=== PATIENT | male | born 1955 | race African-American/Black ===

== ENCOUNTER 2017-02-11 14:54 | Observation (INO) | payer OTHER, SELFPAY ==
--- NOTE | 2017-02-11 15:43 | RAD ---
SINGLE VIEW OF THE CHEST: COMPARISON: 01/04/17. HISTORY: Chest pain. FINDINGS: A single view of the chest shows a normal-sized cardiomediastinal silhouette. There are multiple re mote right rib fractures. No pneumothorax is seen. There is no evidence of consolidation, mass, or pleural effusion. IMPRESSION: 1. No evidence of acute cardiopulmonary disease. 2. Multiple remote right posterior rib fractures. POS: [facility]
[2017-02-11 15:46] LABS: #Eosinphils 0.2 thou/uL (0.0-0.7); #Lymphocytes 2.7 thou/uL (1.20-3.40); #Monocytes 0.5 thou/uL (0.11-0.59); %Basophils 0.9 % (0.0-1.0); %Eosinophils 3.5 % (0.0-10.0); %Monocytes 9.7 % (0.0-10.0); Mean Platelet Volume 9.6 fL (7.4-10.4); Red Blood Cell (RBC) Count 4.67 mill/uL (4.70-6.10); White Blood Cell (WBC) Count 5.4 thou/uL (4.8-10.8)
[2017-02-11 16:08] LABS: ALT (SGPT) 15 U/L (8-55); AST (SGOT) 25 U/L (5-34); Alkaline Phosphatase 108 U/L (40-150); Anion Gap 12 mmol/L (10-20); BUN (Urea Nitrogen) 9 mg/dL (8.4-25.7); Bilirubin, Total 0.2 mg/dL (0.2-1.2); CK (CPK) 57 U/L (30-200); Calc. Creatinine Clearance 0 mL/min (70-130); Calcium 9.8 mg/dL (7.8-10.44); Carbon Dioxide 28 mmol/L (23-31); Chloride 103 mmol/L (98-107); Estimated GFR-MDRD 89; Globulin 4.7 g/dL (2.4-3.5); Lipase 5 U/L (8-78); Protein, Total 8.7 g/dL (5.8-8.1)
[2017-02-11 16:11] LABS: Troponin I Less than 0.010 ng/mL (< 0.028)
[2017-02-11] MEDS ORDERED: Acetaminophen 500 MG TAB ONE (17:36)
[2017-02-11] MEDS ORDERED: cloNIDine HCl 0.1 MG TAB ONE (18:06)
[2017-02-11] MEDS ORDERED: Acetaminophen 650 MG Suppository PR PRN (18:28)
[2017-02-11] MEDS ORDERED: Nitroglycerin 0.4 MG TAB (25 Tab Bottle) PO PRN (18:28)
[2017-02-11] MEDS ORDERED: Dextrose 5% in Water 1,000 ML IV PRN (18:48)
[2017-02-11] MEDS ORDERED: Dextrose 50% Abboject 50 ML SYRINGE SLOW IVP PRN (18:48)
[2017-02-11] MEDS ORDERED: HumaLOG 300 UNITS/3 ML VIAL SC PRN (18:48)
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
[2017-02-11 19:40] LABS: Troponin I 0.011 ng/mL (< 0.028)
[2017-02-11] MEDS ORDERED: Nicotine 14 MG PATCH TD SCH (20:00)
[2017-02-11 21:45] VITALS: BMI 21.3
[2017-02-11] MEDS: Ondansetron HCl/PF 4 MG/2 ML Vial SLOW IVP PRN (21:57)
[2017-02-11 22:46] LABS: Troponin I Less than 0.010 ng/mL (< 0.028)
[2017-02-11 22:49] LABS: Amphetamine Not Detected (NotDetected); Methadone Not Detected (NotDetected); Methamphetamine Not Detected (NotDetected)
[2017-02-11] MEDS: Acetaminophen 325 MG TAB PO PRN (23:22)
[2017-02-12] MEDS ORDERED: Magnesium Citrate 300 ML BOT PO SCH (00:15)
[2017-02-12] MEDS: Acetaminophen 325 MG TAB PO PRN (04:14)
[2017-02-12] MEDS: Ondansetron HCl/PF 4 MG/2 ML Vial SLOW IVP PRN (04:14)
[2017-02-12 04:55] LABS: #Basophils 0.1 thou/uL (0.0-0.2); #Eosinphils 0.1 thou/uL (0.0-0.7); #Monocytes 0.4 thou/uL (0.11-0.59); #Neutrophils 5.8 thou/uL (1.40-6.50); %Basophils 0.8 % (0.0-1.0); %Eosinophils 0.8 % (0.0-10.0); %Lymphocytes 23.8 % (21.0-51.0); %Monocytes 5.2 % (0.0-10.0); Mean Platelet Volume 10.1 fL (7.4-10.4); Red Blood Cell (RBC) Count 5.17 mill/uL (4.70-6.10); White Blood Cell (WBC) Count 8.4 thou/uL (4.8-10.8)
[2017-02-12 05:19] LABS: Anion Gap 14 mmol/L (10-20); BUN (Urea Nitrogen) 10 mg/dL (8.4-25.7); Calc. Creatinine Clearance 70 mL/min (70-130); Calcium 10.1 mg/dL (7.8-10.44); Carbon Dioxide 26 mmol/L (23-31); Chloride 101 mmol/L (98-107); Estimated GFR-MDRD Greater than 90
[2017-02-12] MEDS ORDERED: Aspirin 325 MG TAB PO SCH (08:00)
[2017-02-12] MEDS ORDERED: Carvedilol 25 MG TAB PO SCH (08:00)
[2017-02-12] MEDS ORDERED: Gabapentin 300 MG CAP PO SCH (09:00)
[2017-02-12] MEDS ORDERED: cloNIDine HCl 0.1 MG TAB PO SCH (09:00)
[2017-02-12] MEDS: FLU VACC QS2017-18 36 mo. & older 0.5 ML SYRINGE IM ONE ×2 (12:19→12:21)
--- NOTE | 2017-02-12 14:31 | NM ---
MYOCARDIAL PERFUSION STUDY: Date: 02/12/17 HISTORY: Chest pain. RADIOPHARMACEUTICALS: 28 mCi technetium-99m sestamibi, IV at stress. 10.2 mCi technetium-99m sestamibi, IV at rest. MEDICATIONS: 0.4 mg of Lexiscan, IV. FINDINGS: There is normal uptake and radiotracer seen throughout the left ventricular myocardium on the stress acquisition. There is no reversible defect seen between the stress and resting acquisitions. Gated images show normal ventricular wall motion and wall thickening. The calculated left ventricular ejec tion fraction is 62%. The calculated left ventricular ejection fraction on prior study on 08/15/15 w as 66%. There was elevation of the transient ischemic dilatation ratio on the prior study of 1.36, a nd is within normal limits on today's examination and is 0.97. IMPRESSION: 1. Normal myocardial perfusion study without evidence of a reversible defect seen to suggest ischem ia. 2. Normal left ventricular ejection fraction of 62%. POS: [facility]
[2017-02-12 16:01] VITALS: TEMP 97.5
[2017-02-12] MEDS ORDERED: ISOVUE-370 76%-LOCM 1 ML ONE (16:02)
[2017-02-12] MEDS ORDERED: Regadenoson 0.4 MG/5 ML SYRINGE ONE (16:38)
--- NOTE | 2017-02-12 16:39 | CT ---
CTA OF THE CHEST WITH CONTRAST: 02/12/17 COMPARISON: None. HISTORY: Chest pain. TECHNIQUE: Multiple contiguous axial images were obtained in a CTA of the chest with contrast per pulmonary emb olism protocol. 3D oblique MIP reformats and direct coronal reformats were performed. FINDINGS: The pulmonary arteries are well opacified without filling defects to suggest pulmonary emboli. No hi lar or mediastinal lymphadenopathy are seen. There is minimal bilateral pleural effusions with adjacent atelectasis. No pneumothorax is seen. No focal infiltrates are seen in the lungs. There is a small cyst in the right kidney. The other visualized subdiaphragmatic structures are unre markable. There are multiple incompletely healed right posterolateral rib fractures. Chest wall soft tissues are unremarkable. IMPRESSION: 1. No evidence of pulmonary thromboembolism. 2. Small bilateral pleural effusions with adjacent atelectasis. 3. Healing right posterolateral rib fractures. 4. Right renal cyst. POS: [facility]
[2017-02-12] MEDS ORDERED: Carvedilol 6.25 MG TAB PO SCH (17:00)
[2017-02-12 17:19] VITALS: BP 156/98
--- NOTE | 2017-02-12 21:42 | DIS ---
PRIMARY CARE PROVIDER: None. DATE OF ADMISSION: 02/11/2017 DATE OF DISCHARGE: 02/12/2017 DISCHARGE DIAGNOSES: 1. Chest pain, resolved. 2. CT angiogram of the chest showing no evidence of pulmonary thromboembolism, small bilateral pleu ral effusions with adjacent atelectasis, healing right posterolateral rib fractures and a right clare l cyst. 3. Nuclear stress test on 02/12/2017, showing normal left ventricular ejection fraction of 62% and a normal myocardial perfusion study. CONDITION OF PATIENT AT THE TIME OF DISCHARGE: Stable. I assessed Mr. Manuel on the day of dischar . He denies any chest pain or shortness of breath. Vital signs are stable. S1 and S2 are heard, regular. Lungs are clear to auscultation bilaterally. DISCHARGE MEDICATIONS: Carvedilol dose decreased to 12.5 mg 2 times a day, docusate 100 mg 2 times a day, gabapentin 300 mg 2 times a day, omeprazole 20 mg 2 times a day, clonidine 0.1 mg 2 times a d ay, nicotine patch 14 mg daily. HOSPITAL COURSE: Mr. Manuel is a pleasant 62-year-old gentleman, who was admitted to [facility] on 02/11/2017 for chest pain. He was monitored on telemetry. He had a nuclear stress test and CT angiogram, with the results as described above. He is being discharged home in a stable condition after his chest pain resolved. On 02/12/2017, he has normal electrolytes, normal creatinine, white count 8400, hemoglobin 16.4, and platelet count 181,000. His carvedilol dose was decreased because of bradycardia. DISCHARGE DESTINATION: [facility]dc.
== END 2017-02-12 17:43 ==
LOC: ERS 14:54 → 2SW 16:54
PROVIDERS: ADMIT Internal Medicine; ATTEND Internal Medicine
DX: R07.89 Other chest pain (principal); B20 Human immunodeficiency virus [HIV] disease; I10 Essential (primary) hypertension; K21.9 Gastro-esophageal reflux disease without esophagitis; E11.9 Type 2 diabetes mellitus without complications; F17.210 Nicotine dependence, cigarettes, uncomplicated
CPT/HCPCS: 36415; 36416; 71010; 71275; 78452; 80048; 80053; 80306; 82553; 83690; 83880; 84484; 85025; 85379; 90471; 90682; 93005; 93017; 94760; 96374; 96375; 96376; A9500; G0008; G0378; J0360; J2405; J2785; Q2036

== ENCOUNTER 2017-02-23 09:16 | Emergency (ER) | payer SELFPAY ==
[2017-02-23] MEDS ORDERED: cloNIDine 0.1 MG TAB ONE (09:31)
--- NOTE | 2017-02-23 09:55 | CT ---
CT BRAIN WITHOUT CONTRAST: History: Headache, hypertension. FINDINGS: Comparison made with exam of 10-08-16. No evidence of acute infarct, hemorrhage, midline shift, or abnormal extraaxial fluid collections ar e seen. The ventricular size is normal and the basilar cisterns patent. The bony calvarium is intact . There visualized paranasal sinuses and mastoid air cells are well aerated. IMPRESSION: No CT evidence of acute intracranial process. POS: [facility]
[2017-02-23 09:59] LABS: Bilirubin Negative (Negative); Blood, Urine Trace (Negative); Glucose, Urine (Dipstick) Negative (Negative); Ketone, Urine Negative (Negative); Nitrite Negative (Negative); Protein, Urine (Dipstick) 100 mg/dL (Neg-Trace)
[2017-02-23 10:02] LABS: Bacteria/HPF None Seen HPF (None Seen); Hyaline Casts/LPF 0-3 HYALINE CAST LPF (0-3 Hyaline); RBC/HPF 0-3 HPF (0-3); Squamous Epithelial None Seen HPF (0-3); WBC/HPF None Seen HPF (0-3)
== END 2017-02-23 12:06 | disposition home or self-care (01) ==
LOC: ERS 09:16
DX: R51 Headache (principal); I10 Essential (primary) hypertension; F31.9 Bipolar disorder, unspecified; F41.9 Anxiety disorder, unspecified; F17.200 Nicotine dependence, unspecified, uncomplicated; B20 Human immunodeficiency virus [HIV] disease; Z79.899 Other long term (current) drug therapy
CPT/HCPCS: 70450; 81003; 81015

== ENCOUNTER 2017-03-13 23:59 | Emergency (ER) | payer SELFPAY ==
[2017-03-14 01:58] LABS: Bilirubin Negative (Negative); Blood, Urine Negative (Negative); Glucose, Urine (Dipstick) Negative (Negative); Ketone, Urine Negative (Negative); Nitrite Negative (Negative); Protein, Urine (Dipstick) Negative (Neg-Trace)
[2017-03-14 02:01] LABS: #Basophils 0.1 thou/uL (0.0-0.2); #Eosinphils 0.1 thou/uL (0.0-0.7); #Monocytes 0.7 thou/uL (0.11-0.59); %Basophils 1.3 % (0.0-1.0); %Eosinophils 1.5 % (0.0-10.0); %Lymphocytes 43.6 % (21.0-51.0); Hematocrit 42.8 % (42.0-52.0); Mean Platelet Volume 8.6 fL (7.4-10.4); Red Blood Cell (RBC) Count 4.55 mill/uL (4.70-6.10)
[2017-03-14 02:13] LABS: ALT (SGPT) 21 U/L (8-55); AST (SGOT) 25 U/L (5-34); Alkaline Phosphatase 127 U/L (40-150); Anion Gap 15 mmol/L (10-20); BUN (Urea Nitrogen) 12 mg/dL (8.4-25.7); Bilirubin, Total 0.3 mg/dL (0.2-1.2); CK (CPK) 339 U/L (30-200); Calc. Creatinine Clearance 0 mL/min (70-130); Carbon Dioxide 24 mmol/L (23-31); Chloride 104 mmol/L (98-107); Estimated GFR-MDRD Greater than 90; Globulin 4.2 g/dL (2.4-3.5); Lipase 4 U/L (8-78); Magnesium 2.2 mg/dL (1.6-2.6)
--- NOTE | 2017-03-14 09:05 | RAD ---
UPRIGHT PORTABLE CHEST 1 VIEW: HISTORY: A 62-year-old male with altered mental status, coughing up green phlegm with chest wall pain from co ughing. COMPARISON: 02/11/17. FINDINGS: Monitor leads overlie the chest. Numerous right healed rib fractures. No confluent pneumonia, over t edema, or pleural effusion. IMPRESSION: Multiple healed right rib fractures. No evidence of pneumonia or other acute process. Stable from prior study. POS: [facility]
== END 2017-03-14 06:18 | disposition home or self-care (01) ==
LOC: ERS 23:59
DX: J20.9 Acute bronchitis, unspecified (principal); B20 Human immunodeficiency virus [HIV] disease; I10 Essential (primary) hypertension; K21.9 Gastro-esophageal reflux disease without esophagitis; E78.00 Pure hypercholesterolemia, unspecified; F31.9 Bipolar disorder, unspecified; F41.9 Anxiety disorder, unspecified; F17.200 Nicotine dependence, unspecified, uncomplicated; Z79.899 Other long term (current) drug therapy
CPT/HCPCS: 71010; 80053; 81003; 82550; 83690; 83735; 85025; 93005; 96360; 99406

== ENCOUNTER 2017-03-16 19:36 | Emergency (ER) | payer SELFPAY | END 2017-03-16 20:03 | disposition left against medical advice (07) | LOC: ERS 19:36 | DX: R07.9 Chest pain, unspecified (principal); B20 Human immunodeficiency virus [HIV] disease; E78.00 Pure hypercholesterolemia, unspecified; J44.9 Chronic obstructive pulmonary disease, unspecified; F31.9 Bipolar disorder, unspecified; F20.9 Schizophrenia, unspecified; F41.9 Anxiety disorder, unspecified; F17.200 Nicotine dependence, unspecified, uncomplicated; K21.9 Gastro-esophageal reflux disease without esophagitis; I10 Essential (primary) hypertension | CPT/HCPCS: 93005 ==

== ENCOUNTER 2017-03-25 03:43 | Emergency (ER) | payer SELFPAY ==
[2017-03-25 04:23] LABS: #Basophils 0.1 thou/uL (0.0-0.2); #Eosinphils 0.1 thou/uL (0.0-0.7); #Lymphocytes 2.1 thou/uL (1.20-3.40); #Monocytes 0.6 thou/uL (0.11-0.59); %Eosinophils 2.5 % (0.0-10.0); %Lymphocytes 35.4 % (21.0-51.0); %Monocytes 10.6 % (0.0-10.0); Hematocrit 41.1 % (42.0-52.0); Mean Platelet Volume 7.9 fL (7.4-10.4); Red Blood Cell (RBC) Count 4.34 mill/uL (4.70-6.10); White Blood Cell (WBC) Count 5.9 thou/uL (4.8-10.8)
[2017-03-25 04:50] LABS: ALT (SGPT) 15 U/L (8-55); AST (SGOT) 29 U/L (5-34); Alkaline Phosphatase 149 U/L (40-150); Anion Gap 17 mmol/L (10-20); BUN (Urea Nitrogen) 8 mg/dL (8.4-25.7); Bilirubin, Total 0.3 mg/dL (0.2-1.2); CK (CPK) 388 U/L (30-200); Calc. Creatinine Clearance 0 mL/min (70-130); Carbon Dioxide 23 mmol/L (23-31); Chloride 101 mmol/L (98-107); Estimated GFR-MDRD Greater than 90; Globulin 4.5 g/dL (2.4-3.5); Lipase 9 U/L (8-78); Protein, Total 8.2 g/dL (5.8-8.1)
[2017-03-25 04:52] LABS: Troponin I Less than 0.010 ng/mL (< 0.028)
--- NOTE | 2017-03-25 09:51 | RAD ---
PORTABLE AP CHEST: Date: 03/25/17 HISTORY: Left-sided chest pain. Positive alcohol intoxication. COMPARISON: 03/14/17. FINDINGS: Cardiac silhouette and pulmonary vasculature are within normal limits. Multiple healed right-sided ri b fractures are again seen. The lungs are clear. There has been no interval change from the prior exa m. IMPRESSION: 1. No acute cardiopulmonary process. 2. Stable remote right-sided rib fractures. POS: [facility]
== END 2017-03-25 05:18 | disposition home or self-care (01) ==
LOC: ERS 03:43
DX: K21.9 Gastro-esophageal reflux disease without esophagitis (principal); R07.9 Chest pain, unspecified; I10 Essential (primary) hypertension; B20 Human immunodeficiency virus [HIV] disease; J44.9 Chronic obstructive pulmonary disease, unspecified; F20.9 Schizophrenia, unspecified; F17.210 Nicotine dependence, cigarettes, uncomplicated; Z71.6 Tobacco abuse counseling
CPT/HCPCS: 36415; 71010; 80053; 82553; 83690; 84484; 85025; 93005; 99406

== ENCOUNTER 2017-03-27 22:18 | Emergency (ER) | payer SELFPAY ==
--- NOTE | 2017-03-27 22:53 | RAD ---
CHEST TWO VIEWS 03/27/17 HISTORY: Hematemesis. COMPARISON: 03/18/17. FINDINGS: The cardiac silhouette and pulmonary vasculature are unremarkable. Patchy areas of chronic parenchyma l infiltrate throughout each lung are similar in appearance to the prior exams. Mediastinum is midlin e. Old right rib fractures are similar in appearance to the prior study. No new areas of air space co nsolidation, pleural fluid or pneumothorax are visible. IMPRESSION: Chronic type findings are stable. No active cardiopulmonary abnormalities are demonstrated. POS: [facility]
[2017-03-28 00:05] LABS: #Basophils 0.1 thou/uL (0.0-0.2); #Eosinphils 0.2 thou/uL (0.0-0.7); #Lymphocytes 2.4 thou/uL (1.20-3.40); #Monocytes 0.4 thou/uL (0.11-0.59); #Neutrophils 1.8 thou/uL (1.40-6.50); %Basophils 1.8 % (0.0-1.0); %Eosinophils 3.3 % (0.0-10.0); %Lymphocytes 49.5 % (21.0-51.0); %Monocytes 8.1 % (0.0-10.0); Mean Platelet Volume 7.6 fL (7.4-10.4); Red Blood Cell (RBC) Count 4.27 mill/uL (4.70-6.10); White Blood Cell (WBC) Count 4.8 thou/uL (4.8-10.8)
[2017-03-28 00:11] LABS: PTT 28.6 SEC (22.9-36.1); Prothrombin Time 13.2 SEC (12.0-14.7)
[2017-03-28 00:25] LABS: ALT (SGPT) 16 U/L (8-55); AST (SGOT) 33 U/L (5-34); Alkaline Phosphatase 145 U/L (40-150); Anion Gap 17 mmol/L (10-20); BUN (Urea Nitrogen) 7 mg/dL (8.4-25.7); Bilirubin, Total 0.2 mg/dL (0.2-1.2); Calc. Creatinine Clearance 0 mL/min (70-130); Calcium 8.6 mg/dL (7.8-10.44); Carbon Dioxide 25 mmol/L (23-31); Chloride 105 mmol/L (98-107); Estimated GFR-MDRD Greater than 90; Globulin 4.3 g/dL (2.4-3.5); Magnesium 2.1 mg/dL (1.6-2.6); Protein, Total 7.9 g/dL (5.8-8.1)
== END 2017-03-28 00:48 | disposition home or self-care (01) ==
LOC: ERS 22:18
DX: R05 Cough (principal); K21.9 Gastro-esophageal reflux disease without esophagitis; I10 Essential (primary) hypertension; J44.9 Chronic obstructive pulmonary disease, unspecified; F20.9 Schizophrenia, unspecified; E78.00 Pure hypercholesterolemia, unspecified; B20 Human immunodeficiency virus [HIV] disease; F17.210 Nicotine dependence, cigarettes, uncomplicated; Z79.899 Other long term (current) drug therapy
CPT/HCPCS: 36415; 71020; 80053; 83735; 85025; 85610; 85730

== ENCOUNTER 2017-04-07 19:00 | Inpatient (IN) | payer SELFPAY ==
[2017-04-07] MEDS ORDERED: Ondansetron HCl/PF 4 MG/2 ML Vial ONE (19:39)
[2017-04-07 19:45] LABS: #Basophils 0.1 thou/uL (0.0-0.2); #Eosinphils 0.2 thou/uL (0.0-0.7); #Lymphocytes 2.1 thou/uL (1.20-3.40); #Monocytes 0.4 thou/uL (0.11-0.59); #Neutrophils 2.2 thou/uL (1.40-6.50); %Basophils 1.8 % (0.0-1.0); %Eosinophils 3.2 % (0.0-10.0); %Lymphocytes 41.8 % (21.0-51.0); %Monocytes 8.8 % (0.0-10.0); Mean Platelet Volume 8.2 fL (7.4-10.4); Red Blood Cell (RBC) Count 4.42 mill/uL (4.70-6.10)
[2017-04-07 20:00] LABS: ALT (SGPT) 15 U/L (8-55); AST (SGOT) 24 U/L (5-34); Alkaline Phosphatase 122 U/L (40-150); Anion Gap 15 mmol/L (10-20); BUN (Urea Nitrogen) 10 mg/dL (8.4-25.7); Bilirubin, Total 0.4 mg/dL (0.2-1.2); Calc. Creatinine Clearance 0 mL/min (70-130); Calcium 8.9 mg/dL (7.8-10.44); Carbon Dioxide 25 mmol/L (23-31); Chloride 104 mmol/L (98-107); Estimated GFR-MDRD Greater than 90; Globulin 3.8 g/dL (2.4-3.5); Lipase 10 U/L (8-78); Protein, Total 7.4 g/dL (5.8-8.1)
[2017-04-07] MEDS ORDERED: Pantoprazole 40 MG VIAL ONE (21:04)
[2017-04-07] MEDS ORDERED: Ondansetron ODT 4 MG TAB SL PRN (23:00)
[2017-04-07] MEDS ORDERED: Dextrose 5 % And 0.9 % NaCl 1,000 ML IV SCH (23:00)
[2017-04-07] MEDS ORDERED: Ondansetron HCl/PF 4 MG/2 ML Vial IVP PRN (23:00)
[2017-04-08 00:11] VITALS: BMI 20.9
[2017-04-08 00:36] LABS: Hematocrit 39.4 % (42.0-52.0)
[2017-04-08] MEDS ORDERED: Nitroglycerin 0.4 MG TAB (25 Tab Bottle) SL PRN (03:07)
[2017-04-08] MEDS ORDERED: Dextrose 50% Abboject 50 ML SYRINGE SLOW IVP PRN (03:07)
[2017-04-08] MEDS ORDERED: Senokot 8.6 MG TAB PO PRN (03:07)
[2017-04-08] MEDS ORDERED: HumaLOG 300 UNITS/3 ML VIAL SC PRN ×2 (03:07)
[2017-04-08] MEDS ORDERED: traMADol HCl 50 MG TAB PO PRN (03:07)
[2017-04-08] MEDS ORDERED: hydrALAZINE 20 MG/ML VIAL SLOW IVP PRN (03:07)
[2017-04-08] MEDS ORDERED: Ondansetron HCl/PF 4 MG/2 ML Vial IVP PRN ×3 (03:07→12:01)
[2017-04-08] MEDS ORDERED: Bisacodyl 5 MG TAB PO PRN (03:07)
[2017-04-08] MEDS ORDERED: HYDROcodone/Acetaminophen 5/325 mg Tablet PO PRN (03:07)
[2017-04-08] MEDS ORDERED: Dextrose 5% in Water 1,000 ML IV PRN (03:07)
[2017-04-08] MEDS ORDERED: Acetaminophen 325 MG TAB PO PRN (03:07)
[2017-04-08] MEDS ORDERED: Lorazepam 2 MG/ML VIAL SLOW IVP PRN (03:07)
[2017-04-08] MEDS ORDERED: cloNIDine 0.1 MG TAB PO PRN (03:07)
[2017-04-08] MEDS ORDERED: Calcium Carbonate 500 MG ChewTAB PO PRN (03:07)
[2017-04-08] MEDS ORDERED: Mag-Al 1200 mg/1200 mg/30 ML UDCUP PO PRN (03:07)
[2017-04-08 05:19] LABS: #Eosinphils 0.2 thou/uL (0.0-0.7); #Lymphocytes 2.4 thou/uL (1.20-3.40); #Monocytes 0.7 thou/uL (0.11-0.59); #Neutrophils 1.9 thou/uL (1.40-6.50); %Basophils 0.7 % (0.0-1.0); %Eosinophils 3.2 % (0.0-10.0); %Lymphocytes 45.5 % (21.0-51.0); %Monocytes 13.1 % (0.0-10.0); Hematocrit 39.8 % (42.0-52.0); Mean Platelet Volume 8.3 fL (7.4-10.4); Red Blood Cell (RBC) Count 4.08 mill/uL (4.70-6.10); White Blood Cell (WBC) Count 5.2 thou/uL (4.8-10.8)
[2017-04-08] MEDS: Dextrose 5 %-0.45 % NaCl 1,000 ML IV SCH ×3 (05:50→17:27)
[2017-04-08 05:56] LABS: Anion Gap 9 mmol/L (10-20); BUN (Urea Nitrogen) 8 mg/dL (8.4-25.7); Calc. Creatinine Clearance 73 mL/min (70-130); Calcium 8.1 mg/dL (7.8-10.44); Carbon Dioxide 26 mmol/L (23-31); Chloride 107 mmol/L (98-107); Estimated GFR-MDRD Greater than 90
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
[2017-04-08] MEDS: Pantoprazole 40 MG VIAL IVP SCH ×2 (08:48→20:51)
[2017-04-08] MEDS ORDERED: Pantoprazole 40 MG VIAL IVP SCH (09:00)
[2017-04-08] MEDS ORDERED: Morphine Sulfate 2 MG/ML SYRINGE SLOW IVP PRN (12:01)
[2017-04-08] MEDS ORDERED: Meperidine HCl/PF 25 MG/ML VIAL SLOW IVP PRN (12:01)
[2017-04-08] MEDS ORDERED: Promethazine HCl 25 MG/ML VIAL SLOW IVP PRN (12:01)
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
--- NOTE | 2017-04-08 12:40 | OP ---
DATE OF PROCEDURE: 04/08/2017 PROCEDURE: Esophagogastroduodenoscopy with control of hemorrhage. SURGEON: Dr. Suresh Enriquez PREOPERATIVE DIAGNOSIS: Hematemesis. PROCEDURE IN DETAIL: Informed consent was obtained from the patient. He was sedated with total intr avenous anesthesia. The bite block was placed and the endoscope was advanced easily to the second po rtion of the duodenum and retroflexion was performed in the stomach. On the initial pass of the endo scope the esophagus appeared normal. The GE junction appeared normal. The stomach was normal includ ing retroflexed views. The pylorus and first and second portions of the duodenum were normal except for a small AVM in the second portion of the duodenum. This did not appear to be a significant bleed ing source. There was no active bleeding at the time of the procedure. This was cauterized with arg on plasma coagulation. The patient did retch once during the procedure and then as the scope was wit hdrawn back into the stomach, a Zeina-Madrid tear was identified at the GE junction. This is the mo st likely source of his original hematemesis and was a shallow 1 cm Zeina-Madrid tear. There was so me mild oozing around it after it had opened back up, but no focal vessel for direct cautery. The re mainder of the esophagus was normal. The air was suctioned from the stomach. The procedure was comp leted. IMPRESSION: 1. A 1 centimeter Zeina-Madrid tear just below the Z-line which is the bleeding source. There was no active bleeding at the time of the procedure. 2. Small arteriovenous malformation, cauterized in the second portion of the duodenum with argon ag sma coagulation. 3. Otherwise normal esophagogastroduodenoscopy. RECOMMENDATIONS: 1. Proton pump inhibitor twice daily. 2. Follow hemoglobin. Also, please note that the fungal esophagitis seen 3 months ago has resolved.
--- NOTE | 2017-04-08 14:03 | PDOC.PN ---
- Subjective Encounter Start Date: 04/08/17 Encounter Start Time: 14:01 Mr. Manuel was seen today in follow-up of Upper GI bleed. He notes a little abdominal soreness, but otherwise ok. - Objective MAR Reviewed: Yes Vital Signs & Weight: Vital Signs (12 hours) Temp Pulse Resp BP BP Pulse Ox 04/08/17 13:28 61 183/97 H 04/08/17 07:30 98.0 F 61 16 154/84 H 99 04/08/17 05:13 98.2 F 68 17 135/71 98 I&O: 04/07/17 04/08/17 04/09/17 06:59 06:59 06:59 Intake Total 1200 Balance 1200 Result Diagrams: 04/08/17 05:00 04/08/17 05:00 Additional Labs: Accuchecks 04/08/17 05:43 POC Glucose 116 H Phys Exam - Physical Examination HEENT: PERRLA Respiratory: no wheezing, no rales, no rhonchi, clear to auscultation bilateral Cardiovascular: RRR, no significant murmur Gastrointestinal: soft, non-tender, positive bowel sounds Musculoskeletal: no edema Dx/Plan (1) Zeina-Madrid tear Code(s): K22.6 - GASTRO-ESOPHAGEAL LACERATION-HEMORRHAGE SYNDROME Status: Acute (2) Hematemesis Code(s): K92.0 - HEMATEMESIS Status: Acute (3) HIV (human immunodeficiency virus infection) Status: Chronic (4) Hypertension Code(s): I10 - ESSENTIAL (PRIMARY) HYPERTENSION Status: Chronic Qualifiers: - Plan * Hematemesis- patient was found to have a Zeina [place] Tear. His H&H has been stable * HIV- stable * DM- blood glucose has been stable * Hopefully discharge home tomorrow if stable- unfortunately patient is homeless , and does not have a physician, and ? access to medications- will consult case management to see what aid is possibly available to him .
[2017-04-08] MEDS ORDERED: Propofol 200 MG/20 ML VIAL ONE (17:16)
[2017-04-09] MEDS: Dextrose 5 %-0.45 % NaCl 1,000 ML IV SCH ×2 (01:49→10:13)
[2017-04-09] MEDS: Pantoprazole 40 MG VIAL IVP SCH (08:46)
--- NOTE | 2017-04-09 11:17 | PDOC.PN ---
- Subjective Encounter Start Date: 04/09/17 Encounter Start Time: 11:15 Mr. Manuel was seen today in follow-up of Zeina Madrid Tear. He does not have any complaints. He says the abdominal pain is now better after he was able to eat something a little more solid. He would like to be discharged. - Objective MAR Reviewed: Yes Vital Signs & Weight: Vital Signs (12 hours) Temp Pulse Resp BP BP Pulse Ox 04/09/17 10:08 176/76 H 04/09/17 07:00 98.3 F 50 L 15 176/77 H 99 04/09/17 04:29 97.9 F 81 20 154/87 H 98 04/09/17 00:33 98.4 F 64 18 158/82 H 97 I&O: 04/08/17 04/09/17 04/10/17 06:59 06:59 06:59 Intake Total 1200 2305 Output Total 2475 Balance 1200 -170 Result Diagrams: 04/09/17 04:50 04/08/17 05:00 Additional Labs: Accuchecks 04/09/17 04/09/17 04/08/17 10:37 06:36 20:29 POC Glucose 209 H 112 H 85 04/08/17 16:30 POC Glucose 206 H Phys Exam - Physical Examination HEENT: PERRLA Respiratory: no wheezing, no rales, no rhonchi, clear to auscultation bilateral Cardiovascular: RRR, no significant murmur, no rub Gastrointestinal: soft, non-tender, positive bowel sounds Musculoskeletal: no edema Dx/Plan (1) Zeina-Madrid tear Code(s): K22.6 - GASTRO-ESOPHAGEAL LACERATION-HEMORRHAGE SYNDROME Status: Acute (2) Hematemesis Code(s): K92.0 - HEMATEMESIS Status: Acute (3) HIV (human immunodeficiency virus infection) Status: Chronic (4) Hypertension Code(s): I10 - ESSENTIAL (PRIMARY) HYPERTENSION Status: Chronic Qualifiers: - Plan * Zeina Madrid Tear- His H&H has remained stable over night * HTN- blood pressure is elevated- will re-start Clonidine and Metoprolol * Continue Protonix twice daily * Referral to [facility] * Stable for discharge home.
--- NOTE | 2017-04-09 11:40 | DIS ---
PRIMARY CARE PHYSICIAN: The patient does not have a primary care physician. DATE OF DISCHARGE: 04/09/2017 DISCHARGE DISPOSITION: Home. PRIMARY DISCHARGE DIAGNOSES: 1. Upper gastrointestinal bleed secondary to Zeina-Madrid tear. 2. History of alcohol abuse. 3. Hypertension. 4. Human immunodeficiency virus. 5. Gastroesophageal reflux disease. 6. Diabetes mellitus. DISCHARGE MEDICATIONS: Protonix 40 mg twice a day, gabapentin 300 mg twice daily, clonidine 0.1 mg t wice a day and carvedilol 12.5 mg twice a day. PROCEDURES DONE DURING ADMISSION: The patient had an upper GI which demonstrated a Zeina-Madrid tea r just below the Z-line which was the source of bleeding. There was a small AV malformation, which w as cauterized. Otherwise, it was normal. HOSPITAL COURSE: Mr. Manuel is a 62-year-old gentleman who has a history of hypertension and HIV als o has a history of alcohol abuse in the past. He presented to the emergency room complaining of travis temesis and vomiting blood. He was placed in observations started on IV Protonix and GI was consulte d. He underwent upper endoscopy which revealed the Zeina-Madrid tear. The patient had an uneventfu l postoperative course and subsequently was able to be discharged from the hospital. Case management was consulted due to his homeless status and he is going to have a referral to the [facility] Tricia chowdary to hopefully help maintain his medications and general health care and also a voucher was obtrodri anne to help him leave the hospital for transportation.
[2017-04-09 12:05] VITALS: BP 152/86; TEMP 98.4
[2017-04-09] MEDS ORDERED: Carvedilol 6.25 MG TAB PO SCH (17:00)
[2017-04-09] MEDS ORDERED: Gabapentin 300 MG CAP PO SCH (21:00)
[2017-04-09] MEDS ORDERED: cloNIDine 0.1 MG TAB PO SCH (21:00)
== END 2017-04-09 13:32 | disposition home or self-care (01) | DRG 368 ==
LOC: ERS 19:00 → SURG B 22:44
PROVIDERS: ADMIT Internal Medicine; ATTEND Internal Medicine
PROC: 0W3P8ZZ Control Bleeding in Gastrointestinal Tract, Via Natural or Artificial Opening Endoscopic (ICD-10-PCS; principal; 2017-04-08)
DX: K22.6 Gastro-esophageal laceration-hemorrhage syndrome (principal); B20 Human immunodeficiency virus [HIV] disease; K92.1 Melena; F10.20 Alcohol dependence, uncomplicated; F17.290 Nicotine dependence, other tobacco product, uncomplicated; Z59.0 Homelessness; Q27.33 Arteriovenous malformation of digestive system vessel; I10 Essential (primary) hypertension; E11.9 Type 2 diabetes mellitus without complications; K21.9 Gastro-esophageal reflux disease without esophagitis; J44.9 Chronic obstructive pulmonary disease, unspecified
CPT/HCPCS: 36415; 36416; 80048; 80053; 80307; 82274; 83690; 85014; 85018; 85025; 85049; 93005; 96361; 96365; 96375; 99406; C9113; J0360; J2405; J2704

== ENCOUNTER 2017-04-12 20:46 | Emergency (ER) | payer SELFPAY ==
[2017-04-12 22:45] LABS: #Basophils 0.1 thou/uL (0.0-0.2); #Eosinphils 0.1 thou/uL (0.0-0.7); #Lymphocytes 2.7 thou/uL (1.20-3.40); #Monocytes 0.5 thou/uL (0.11-0.59); #Neutrophils 2.5 thou/uL (1.40-6.50); %Basophils 1.5 % (0.0-1.0); %Eosinophils 2.5 % (0.0-10.0); %Lymphocytes 45.4 % (21.0-51.0); %Monocytes 7.6 % (0.0-10.0); Hematocrit 45.2 % (42.0-52.0); Mean Platelet Volume 8.3 fL (7.4-10.4); White Blood Cell (WBC) Count 5.9 thou/uL (4.8-10.8)
[2017-04-12 23:06] LABS: ALT (SGPT) 15 U/L (8-55); AST (SGOT) 20 U/L (5-34); Alkaline Phosphatase 105 U/L (40-150); Anion Gap 13 mmol/L (10-20); BUN (Urea Nitrogen) 10 mg/dL (8.4-25.7); Bilirubin, Total 0.4 mg/dL (0.2-1.2); Calc. Creatinine Clearance 0 mL/min (70-130); Calcium 8.7 mg/dL (7.8-10.44); Carbon Dioxide 23 mmol/L (23-31); Chloride 106 mmol/L (98-107); Estimated GFR-MDRD Greater than 90; Globulin 3.7 g/dL (2.4-3.5); Protein, Total 7.1 g/dL (5.8-8.1)
[2017-04-12 23:09] LABS: Troponin I Less than 0.010 ng/mL (< 0.028)
== END 2017-04-13 00:05 | disposition home or self-care (01) ==
LOC: ERS 20:46
DX: F10.129 Alcohol abuse with intoxication, unspecified (principal); B20 Human immunodeficiency virus [HIV] disease; I10 Essential (primary) hypertension; K21.9 Gastro-esophageal reflux disease without esophagitis; E78.00 Pure hypercholesterolemia, unspecified; J44.9 Chronic obstructive pulmonary disease, unspecified; F41.9 Anxiety disorder, unspecified; F31.9 Bipolar disorder, unspecified; F20.9 Schizophrenia, unspecified; F17.210 Nicotine dependence, cigarettes, uncomplicated
CPT/HCPCS: 36415; 80053; 80307; 82553; 83880; 84484; 85025; 99284

== ENCOUNTER 2017-04-13 20:59 | Emergency (ER) | payer SELFPAY | END 2017-04-13 21:15 | disposition left against medical advice (07) | LOC: ERS 20:59 | DX: Z53.21 Procedure and treatment not carried out due to patient leaving prior to being seen by health care provider (principal) ==

== ENCOUNTER 2017-04-22 21:08 | Emergency (ER) | payer SELFPAY ==
--- NOTE | 2017-04-22 22:01 | RAD ---
TWO VIEWS CHEST 04/22/17 PROVIDED CLINICAL HISTORY: Weakness. FINDINGS: Comparison 03/27/17. The cardiac and mediastinal silhouette is within normal limits. No focal consolidation, pleural fluid or pneumothorax apparent. Multiple remote appearing or subacute right sided rib fractures are again seen. IMPRESSION: No evidence for an acute cardiopulmonary process. POS: [facility]
[2017-04-22 22:15] LABS: #Basophils 0.1 thou/uL (0.0-0.2); #Eosinphils 0.2 thou/uL (0.0-0.7); #Lymphocytes 1.8 thou/uL (1.20-3.40); #Monocytes 0.6 thou/uL (0.11-0.59); #Neutrophils 3.7 thou/uL (1.40-6.50); %Basophils 1.3 % (0.0-1.0); %Eosinophils 2.6 % (0.0-10.0); %Lymphocytes 28.4 % (21.0-51.0); Hematocrit 41.8 % (42.0-52.0); Mean Platelet Volume 7.9 fL (7.4-10.4); Red Blood Cell (RBC) Count 4.21 mill/uL (4.70-6.10); White Blood Cell (WBC) Count 6.4 thou/uL (4.8-10.8)
[2017-04-22 22:38] LABS: ALT (SGPT) 16 U/L (8-55); AST (SGOT) 28 U/L (5-34); Alkaline Phosphatase 119 U/L (40-150); Anion Gap 13 mmol/L (10-20); BUN (Urea Nitrogen) 16 mg/dL (8.4-25.7); Bilirubin, Total 0.4 mg/dL (0.2-1.2); CK (CPK) 355 U/L (30-200); Calc. Creatinine Clearance 0 mL/min (70-130); Calcium 9.5 mg/dL (7.8-10.44); Carbon Dioxide 26 mmol/L (23-31); Chloride 106 mmol/L (98-107); Estimated GFR-MDRD Greater than 90
[2017-04-22 22:41] LABS: Troponin I Less than 0.010 ng/mL (< 0.028)
[2017-04-22 22:53] LABS: Bilirubin Negative (Negative); Blood, Urine Negative (Negative); Glucose, Urine (Dipstick) Negative (Negative); Ketone, Urine Negative (Negative); Nitrite Negative (Negative); Protein, Urine (Dipstick) Negative (Neg-Trace)
[2017-04-22] MEDS ORDERED: Metoclopramide HCl 10 MG TAB PO SCH (23:45)
[2017-04-22] MEDS ORDERED: cloNIDine 0.1 MG TAB ONE (23:48)
[2017-04-22] MEDS ORDERED: Acetaminophen 500 MG TAB ONE (23:48)
== END 2017-04-23 01:10 | disposition home or self-care (01) ==
LOC: ERS 21:08
DX: I10 Essential (primary) hypertension (principal); F31.9 Bipolar disorder, unspecified; F20.9 Schizophrenia, unspecified; F41.9 Anxiety disorder, unspecified; F17.200 Nicotine dependence, unspecified, uncomplicated; B20 Human immunodeficiency virus [HIV] disease; J44.9 Chronic obstructive pulmonary disease, unspecified; Z71.6 Tobacco abuse counseling; K21.9 Gastro-esophageal reflux disease without esophagitis; Z91.14 Patient's other noncompliance with medication regimen
CPT/HCPCS: 36415; 71020; 80053; 81003; 82553; 84484; 85025; 93005; 99406

== ENCOUNTER 2017-04-23 22:04 | Emergency (ER) | payer SELFPAY ==
--- NOTE | 2017-04-23 22:49 | RAD ---
CHEST ONE VIEW: 04/23/17 HISTORY: 62-year-old male with hematemesis. COMPARISON: 03/25/17. FINDINGS: Numerous healed right rib fractures, stable. Arthrosis changes in both shoulders. Heart size is withi n normal limits. The lungs are clear. No confluent pneumonia, overt edema or pleural effusion. IMPRESSION: No acute intrathoracic disease. POS: [facility]
[2017-04-23 23:17] LABS: PTT 30.3 SEC (22.9-36.1); Prothrombin Time 13.6 SEC (12.0-14.7)
[2017-04-23 23:28] LABS: #Basophils 0.1 thou/uL (0.0-0.2); #Eosinphils 0.2 thou/uL (0.0-0.7); #Lymphocytes 2.3 thou/uL (1.20-3.40); #Monocytes 0.4 thou/uL (0.11-0.59); #Neutrophils 1.7 thou/uL (1.40-6.50); %Eosinophils 4.3 % (0.0-10.0); %Lymphocytes 49.2 % (21.0-51.0); %Monocytes 8.3 % (0.0-10.0); Hematocrit 43.4 % (42.0-52.0); Mean Platelet Volume 8.3 fL (7.4-10.4); Red Blood Cell (RBC) Count 4.36 mill/uL (4.70-6.10); White Blood Cell (WBC) Count 4.7 thou/uL (4.8-10.8)
[2017-04-23 23:32] LABS: ALT (SGPT) 14 U/L (8-55); AST (SGOT) 25 U/L (5-34); Alkaline Phosphatase 112 U/L (40-150); Anion Gap 15 mmol/L (10-20); BUN (Urea Nitrogen) 9 mg/dL (8.4-25.7); Bilirubin, Total 0.4 mg/dL (0.2-1.2); Calc. Creatinine Clearance 0 mL/min (70-130); Calcium 8.9 mg/dL (7.8-10.44); Carbon Dioxide 23 mmol/L (23-31); Chloride 106 mmol/L (98-107); Estimated GFR-MDRD Greater than 90; Protein, Total 8.1 g/dL (5.8-8.1)
[2017-04-23 23:35] LABS: Troponin I Less than 0.010 ng/mL (< 0.028)
[2017-04-24] MEDS ORDERED: Potassium Chloride 20 MEQ TAB ONE (00:16)
== END 2017-04-24 00:18 | disposition home or self-care (01) ==
LOC: ERS 22:04
DX: K92.0 Hematemesis (principal); R05 Cough; B20 Human immunodeficiency virus [HIV] disease; I10 Essential (primary) hypertension; K21.9 Gastro-esophageal reflux disease without esophagitis; J44.9 Chronic obstructive pulmonary disease, unspecified; F31.9 Bipolar disorder, unspecified; F20.9 Schizophrenia, unspecified; F41.9 Anxiety disorder, unspecified; F17.210 Nicotine dependence, cigarettes, uncomplicated
CPT/HCPCS: 36415; 71010; 80053; 82553; 84484; 85025; 85610; 85730; 93005; 94640; J7620

== ENCOUNTER 2017-04-24 22:50 | Emergency (ER) | payer SELFPAY ==
--- NOTE | 2017-04-25 09:38 | RAD ---
2 VIEWS CHEST: Date: 04/25/17 HISTORY: Cough. FINDINGS: Comparison made to previous exam from 04/22/17. PA and lateral views of chest demonstrate the lungs to be well aerated. No evidence of active intrath oracic disease is seen. No evidence of effusions, pneumonia, or pneumothorax. IMPRESSION: Normal 2 views chest. POS: [facility]
== END 2017-04-25 02:52 | disposition home or self-care (01) ==
LOC: ERS 22:50
DX: R05 Cough (principal); B20 Human immunodeficiency virus [HIV] disease; I10 Essential (primary) hypertension; K21.9 Gastro-esophageal reflux disease without esophagitis; E78.00 Pure hypercholesterolemia, unspecified; J44.9 Chronic obstructive pulmonary disease, unspecified; F31.9 Bipolar disorder, unspecified; F20.9 Schizophrenia, unspecified; F41.9 Anxiety disorder, unspecified; F17.290 Nicotine dependence, other tobacco product, uncomplicated
CPT/HCPCS: 71020

== ENCOUNTER 2017-04-25 22:45 | Emergency (ER) | payer SELFPAY ==
[2017-04-26 04:00] LABS: #Basophils 0.1 thou/uL (0.0-0.2); #Eosinphils 0.3 thou/uL (0.0-0.7); #Lymphocytes 2.4 thou/uL (1.20-3.40); #Monocytes 0.7 thou/uL (0.11-0.59); #Neutrophils 2.7 thou/uL (1.40-6.50); %Basophils 0.9 % (0.0-1.0); %Eosinophils 4.1 % (0.0-10.0); %Lymphocytes 39.1 % (21.0-51.0); %Monocytes 10.9 % (0.0-10.0); Hematocrit 42.7 % (42.0-52.0); Mean Platelet Volume 8.7 fL (7.4-10.4); Red Blood Cell (RBC) Count 4.31 mill/uL (4.70-6.10); White Blood Cell (WBC) Count 6.1 thou/uL (4.8-10.8)
[2017-04-26 04:10] LABS: Lactic Acid - Sepsis 2.1 mmol/L (0.5-2.2)
[2017-04-26 04:12] LABS: Bilirubin Negative (Negative); Blood, Urine Negative (Negative); Glucose, Urine (Dipstick) Negative (Negative); Ketone, Urine Negative (Negative); Nitrite Negative (Negative); Protein, Urine (Dipstick) Negative (Neg-Trace)
[2017-04-26 04:15] LABS: ALT (SGPT) 15 U/L (8-55); AST (SGOT) 27 U/L (5-34); Alkaline Phosphatase 117 U/L (40-150); Anion Gap 16 mmol/L (10-20); BUN (Urea Nitrogen) 10 mg/dL (8.4-25.7); Bilirubin, Total 0.3 mg/dL (0.2-1.2); Calc. Creatinine Clearance 0 mL/min (70-130); Calcium 9.5 mg/dL (7.8-10.44); Carbon Dioxide 24 mmol/L (23-31); Chloride 103 mmol/L (98-107); Estimated GFR-MDRD Greater than 90; Globulin 4.1 g/dL (2.4-3.5); Protein, Total 8.1 g/dL (5.8-8.1)
[2017-04-26] MEDS ORDERED: Sulfameth/Trimethoprim DS 800-160mg TAB ONE (04:53)
--- NOTE | 2017-04-26 08:59 | RAD ---
AP VIEW CHEST: Date: 04/26/17 HISTORY: Dyspnea. FINDINGS: Comparison made to previous exam from 04/23/17. AP view of chest demonstrates the lungs to be well aerated. No evidence of active intrathoracic disea se is seen. No evidence of effusions, pneumonia, or pneumothorax seen. IMPRESSION: Unremarkable AP view of chest. POS: [facility]
== END 2017-04-26 07:25 | disposition home or self-care (01) ==
LOC: ERS 22:45
DX: R05 Cough (principal); R06.02 Shortness of breath; B20 Human immunodeficiency virus [HIV] disease; I10 Essential (primary) hypertension; K21.9 Gastro-esophageal reflux disease without esophagitis; J44.9 Chronic obstructive pulmonary disease, unspecified; F31.9 Bipolar disorder, unspecified; F20.9 Schizophrenia, unspecified; F41.9 Anxiety disorder, unspecified; F17.290 Nicotine dependence, other tobacco product, uncomplicated; E78.00 Pure hypercholesterolemia, unspecified
CPT/HCPCS: 36415; 71010; 80053; 81003; 83605; 85025; 87086; 94640; 94760; J7620

== ENCOUNTER 2017-04-29 03:17 | Inpatient (IN) | payer SELFPAY ==
[2017-04-29 04:27] LABS: #Basophils 0.1 thou/uL (0.0-0.2); #Eosinphils 0.2 thou/uL (0.0-0.7); #Lymphocytes 2.7 thou/uL (1.20-3.40); #Monocytes 0.7 thou/uL (0.11-0.59); #Neutrophils 3.3 thou/uL (1.40-6.50); %Basophils 0.9 % (0.0-1.0); %Eosinophils 2.9 % (0.0-10.0); %Lymphocytes 38.9 % (21.0-51.0); %Monocytes 9.5 % (0.0-10.0); %Neutrophils 47.8 % (42.0-75.0); Hemoglobin 15.1 g/dL (14.0-18.0); Mean Corpuscular HGB CONC 32.7 g/dL (32.0-36.0); Mean Corpuscular Hemoglobin 32.3 pg (27.0-31.0); Mean Corpuscular Volume 98.7 fl (80.0-94.0); Mean Platelet Volume 9.9 fL (7.4-10.4); Platelet Count 244 thou/uL (130-400); RBC Distribution Width 19.4 % (11.5-14.5); Red Blood Cell (RBC) Count 4.68 mill/uL (4.70-6.10)
[2017-04-29] MEDS ORDERED: Labetalol HCl 100 MG/20 ML VIAL SLOW IVP PRN (04:45)
[2017-04-29] MEDS ORDERED: Morphine 4 MG/ML VIAL ONE (04:50)
[2017-04-29] MEDS ORDERED: Labetalol HCl 100 MG/20 ML VIAL SLOW IVP SCH (05:00)
[2017-04-29 05:17] LABS: Chloride 102 mmol/L (98-107); Potassium 3.6 mmol/L (3.5-5.1); Sodium 139 mmol/L (136-145)
[2017-04-29 05:18] LABS: Calcium 9.9 mg/dL (7.8-10.44)
[2017-04-29 05:19] LABS: Globulin 4.2 g/dL (2.4-3.5); Glucose 94 mg/dL (80-115); Protein, Total 8.2 g/dL (5.8-8.1)
[2017-04-29 05:20] LABS: Anion Gap 15 mmol/L (10-20); Bilirubin, Total 0.5 mg/dL (0.2-1.2); Carbon Dioxide 26 mmol/L (23-31)
[2017-04-29 05:21] LABS: Alkaline Phosphatase 117 U/L (40-150)
[2017-04-29 05:22] LABS: Calc. Creatinine Clearance 0 mL/min (70-130); Estimated GFR-MDRD Greater than 90
[2017-04-29 05:23] LABS: BUN (Urea Nitrogen) 12 mg/dL (8.4-25.7)
[2017-04-29 05:24] LABS: AST (SGOT) 27 U/L (5-34)
[2017-04-29 05:25] LABS: ALT (SGPT) 17 U/L (8-55)
--- NOTE | 2017-04-29 07:09 | HP-2 ---
TIME AND DATE OF SERVICE: 4:15 a.m. on 04/29/2017 CODE STATUS: FULL. PRIMARY CARE PHYSICIAN: Sedrick danielle. ATTENDING: Dr. Daniel. RESIDENT: Dr. Jose F Kirkland. HISTORIAN: Patient. CHIEF COMPLAINT: Cold and numbness to feet. HISTORY OF PRESENT ILLNESS: Mr. Abran Manuel is a 62-year-old male with past medical history of hyp ertension, hyperlipidemia, bipolar and schizophrenia who presents with foot numbness, tingling and pa in. He describes it as a throbbing pain that has been going on for the last few days. The patient s tates the pain is worse when his feet are wet. Patient is homeless and has been exposed to cold and wet weather conditions for the last few days. ER doctor noted a white area on the skin of his left f oot that was cool to the touch and consulted surgery who agreed to examine the patient. PAST MEDICAL HISTORY: 1. Hypertension. 2. Hyperlipidemia. 3. Gastroesophageal reflux disease. 4. Schizophrenia. 5. Bipolar disorder. 6. Anxiety. 7. Depression. PAST SURGICAL HISTORY: Hernia repair. ALLERGIES: No known drug allergies. MEDICATIONS: 1. Clonidine 0.1 mg p.o. b.i.d. 2. Protonix 40 mg p.o. b.i.d. 3. Carvedilol 12.5 mg p.o. b.i.d. 4. Gabapentin 300 mg p.o. b.i.d. SOCIAL HISTORY: The patient endorses smoking cigars and states that one pack of 5 cigars normally la sts about 3 days, states that he occasionally drinks alcohol and also endorsed cocaine use 3 days ago . REVIEW OF SYSTEMS: Twelve point review of systems including general, eyes, ENT, respiratory, CV, GI, , skin, musculoskeletal, neuro and psych were reviewed and were unremarkable unless otherwise stat ed in HPI with the exception of chronic shortness of breath, cough and recent congestion. PHYSICAL EXAMINATION: VITAL SIGNS: Blood pressure 198/103, pulse 60, respiratory rate 18, T-max 98.4, pulse ox 99% on room air, current weight 68 kilograms. GENERAL: The patient is alert and oriented x4, in no acute distress. He is thin, disheveled and mal odorous, but he is appropriately interactive. EYES: Pupils are equal, round, react to light and accommodation. Extraocular muscles intact. Conju nctiva within normal limits. ENT: Tympanic membranes pearly veronica without bulging or erythema. Nasal mucosa and oropharynx within normal limits. NECK: Supple, without lymphadenopathy or thyromegaly. CARDIOVASCULAR: Regular rate and rhythm. No murmurs or gallops. RESPIRATORY: Normal effort, no retractions. LUNGS: Clear to auscultation bilaterally. SKIN: Without cyanosis, but does dorsum of the left foot is cool to the touch and has slight white d iscoloration to it with tenderness to palpation. ABDOMEN: Soft, nontender. Bowel sounds x4. No masses or distention. EXTREMITIES: No clubbing, cyanosis or edema. Extremities are cool to the touch. MUSCULOSKELETAL: Structure and tone within normal limits. Full range of motion. NEUROLOGIC: No focal deficits. Sensation within normal limits. PSYCHIATRIC: Appropriate. LABORATORY DATA: White blood cell count 7.0, hemoglobin 15.1, hematocrit 46.1, platelets 244. Sodiu m 139, potassium 3.6, chloride 102, carbon dioxide 26, BUN 12, creatinine 0.86, glucose 94, calcium 9 .9, total protein 8.2, albumin 4.0, total bilirubin 0.5, AST 27, ALT 17, alkaline phosphatase 117. ASSESSMENT AND PLAN: This is a 62-year-old male with past medical history of hypertension, bipolar d isorder, schizophrenia. 1. Frostbite. Admit to surgery. Dr. Leonard has been consulted. Tylenol p.r.n. for pain and warm b lankets. Frostbite likely due to patient being homeless and being out in the cold wet weather for . 2. Hypertension. Restart home medications. 3. Hyperlipidemia, not on any home medications. 4. Schizophrenia, a set up scheduled to see [facility], will need outpatient follow up. 5. Bipolar disorder. [facility] follow up. 6. Alcohol abuse. RUBEN protocol. 7. Deep venous thrombosis prophylaxis, sequential compression devices. 8. Activity: Ambulate with assist and walking program. 9. Questionable history. Check human immunodeficiency virus, hepatitis C and syphilis. 10. Diet n.p.o. 11. CODE STATUS: FULL. DISPOSITION AND LENGTH OF HOSPITAL STAY: 2 days. Symptomatic medications will be provided. History and physical exam as well as management discussed with Dr. Daniel.
[2017-04-29] MEDS ORDERED: Carvedilol 6.25 MG TAB PO SCH (08:00)
[2017-04-29] MEDS ORDERED: Acetaminophen 325 MG TAB PO PRN (08:11)
[2017-04-29] MEDS ORDERED: Gabapentin 300 MG CAP PO SCH (09:00)
[2017-04-29] MEDS ORDERED: cloNIDine 0.1 MG TAB PO SCH (09:00)
[2017-04-29 10:24] LABS: HIV (1/2) Antibody/Antigen Non-Reactive (NonReactive); HIV 1/2 INDEX 0.14 S/CO (<1.00); Hep B Surf AB Non-Reactive (NonReactive); Hep C IgG Ab Non-Reactive (NonReactive); Hep C Index 0.21 S/CO (0-0.79)
[2017-04-29 10:47] LABS: Syphilis Antibody Nonreactive (Nonreactive); Syphilis Antibody Index 0.09 S/CO (<1.00 Non-Reactive)
[2017-04-29] MEDS: Sodium Chloride 0.9% 1,000 ML IV SCH ×2 (11:33→14:42)
[2017-04-29 11:39] VITALS: BMI 21.1
[2017-04-29] MEDS ORDERED: Recombivax (HEP-B) 5 MCG/0.5 ML VIAL IM ONE (11:55)
[2017-04-29] MEDS ORDERED: Amlodipine 10 MG TAB PO SCH (12:00)
[2017-04-29 12:33] VITALS: BP 132/75; TEMP 97.5
[2017-04-29 14:15] LABS: Amphetamine Not Detected (NotDetected); Barbiturates Screen Not Detected (NotDetected); Benzodiazepine Screen Not Detected (NotDetected); Cocaine Metabolite Screen Not Detected (NotDetected); Medtox Control Line Valid? VALID (VALID); Medtox Reader # READER 4; Methadone Not Detected (NotDetected); Methamphetamine Not Detected (NotDetected); Opiate Screen Detected (NotDetected); Oxycodone Screen Not Detected (NotDetected); Phencyclidine (PCP) Not Detected (NotDetected); THC/Cannabinoid Screen Not Detected (NotDetected); Tricyclic Screen Not Detected (NotDetected)
[2017-04-29] MEDS ORDERED: Hepatitis B Vaccine 10 MCG/0.5 ML SYR IM ONE (15:00)
--- NOTE | 2017-04-29 18:47 | ADD-HP ---
I have reviewed the history and physical of Dr. Jose F Kirkland and agree with his assessment and plan. Briefly, Mr. Manuel is a 62-year-old black male, who is homeless. He has been exposed to the cold an d wet here in [place] for the last few days and presented to the ER with cold and numbness to his feet. It was initially thought he may have a mild case of frostbite, but on our exam this morning this di d not appear to be the case. In any event, he was admitted for further evaluation and observation. PHYSICAL EXAMINATION: VITAL SIGNS: His blood pressure was 180/100, pulse rate was 60, respirations 16. He was afebrile. His pulse ox on room air was 99%. GENERAL: He is an alert, oriented, in no distress. EARS, NOSE, AND THROAT: No erythema or exudate. NECK: Supple. CARDIOVASCULAR: Heart rhythm regular. No gallop or murmur noted. LUNGS: Clear. No rales, rhonchi, or wheezes. ABDOMEN: Flat and soft. EXTREMITIES: With particular attention to his left foot, he did have an onychomycosis of his left gr eat toe. His DP pulses were well felt. The foot was warm and nontender. There was no evidence of a ny tissue necrosis, although he does have several calluses. NEUROLOGIC: No focal deficits. LABORATORY DATA: CBC: White count was 7000, hemoglobin 15, hematocrit 46.1 with an MCV of 98. Chem istries: Sodium 139, potassium 3.6, chloride 102, bicarbonate 26, BUN 12, creatinine 0.86. Serum to rocky protein slightly elevated at 8.2. Serologies for syphilis and hepatitis B and hepatitis C were a ll negative. ASSESSMENT: Possible mild early frostbite of his left foot and left great toe. PLAN: Admit, observe, monitor.
[2017-04-30] MEDS ORDERED: Amlodipine 5 MG TAB PO SCH (09:00)
--- NOTE | 2017-05-02 18:48 | DIS-2 ---
DATE OF ADMISSION: 04/29/2017. DATE OF DISCHARGE: 04/29/2017. RESIDENT: Kailee Mtz DO ADMITTING ATTENDING: Julio Cesar Daniel MD DISCHARGE ATTENDING: Julio Cesar Daniel MD CONSULTATION: General Surgery, Dr. Leonard. PROCEDURE/IMAGING: None. PRIMARY DIAGNOSIS: Stage I frostbite. SECONDARY DIAGNOSES: 1. Hypertension. 2. Hyperlipidemia. 3. Schizophrenia. 4. Bipolar disorder. 5. Alcohol abuse. 6. Drug abuse. 7. Malnutrition. DISCHARGE MEDICATIONS: 1. Clonidine 0.1 mg p.o. b.i.d. 2. Protonix 40 mg p.o. b.i.d. 3. Nicotine 14 mg transdermal q.24 hours. 4. Gabapentin 300 mg p.o. b.i.d. 5. Docusate sodium 100 mg p.o. b.i.d. 6. Carvedilol 12.5 mg p.o. b.i.d. 7. Amlodipine 5 mg p.o. daily. DISCONTINUED MEDICATIONS: None. HISTORY OF PRESENT ILLNESS/HOSPITAL COURSE: The patient is a 62-year-old homeless -[place], who presented to the ED with foot numbness, tingling, and pain on bilateral great toes. The pat ient reports they have been throbbing pain over the last few days and pain is worse whenever his feet are wet. The patient is homeless and has been exposed to cold and wet weather conditions over the l ast couple days. In the ER, there was a whitish area of the skin to his left foot that was cool to t ouch. Dr. Leonard was called and agreed to examine the patient as inpatient. The patient was covered with warm blankets and rewarming began. The patient was given Tylenol for pain. After rewarming, e xam revealed no areas of white on his skin. The patient is neurovascularly intact. Primary team alka mcdonough with specialist, Dr. Leonard, agreed that he is not a surgical candidate. The patient was discharg ed with followup with [facility]. In regard to his chronic medical conditions, the patient was hypertensive during his stay and amlodip ine 5 mg daily was added to his regimen. The patient admits to alcohol and drug use. The patient reports desire to quit these habits. Calixto rader was consulted and provided the patient with resources. The patient plans on becoming sober and then will qualify for placement at homeless care home. The patient reports he is going to begin f ollowup with [facility] for his psych disorders. DISPOSITION: Stable. DISCHARGE INSTRUCTIONS: 1. Location: The patient is homeless. Recommended and given resources for homeless shelters. 2. Diet: Heart healthy, low sodium. 3. Activity: As tolerated. 4. Follow up at [facility] in 1 week and MR as soon as possible.
== END 2017-04-29 15:50 | disposition home or self-care (01) | DRG 923 ==
LOC: ERS 03:17 → SURG A 08:01
PROVIDERS: ADMIT Emergency Medicine; ATTEND Emergency Medicine
DX: T33.822A Superficial frostbite of left foot, initial encounter (principal); E46 Unspecified protein-calorie malnutrition; F20.9 Schizophrenia, unspecified; E78.5 Hyperlipidemia, unspecified; I10 Essential (primary) hypertension; Z59.0 Homelessness; T33.821A Superficial frostbite of right foot, initial encounter; X31.XXXA Exposure to excessive natural cold, initial encounter; K21.9 Gastro-esophageal reflux disease without esophagitis; F31.9 Bipolar disorder, unspecified; F17.290 Nicotine dependence, other tobacco product, uncomplicated; F10.10 Alcohol abuse, uncomplicated; F14.10 Cocaine abuse, uncomplicated; Z68.21 Body mass index [BMI] 21.0-21.9, adult
CPT/HCPCS: 36415; 80053; 80306; 85025; 86706; 86780; 86803; 87389; 90746; 96374; G8978-GP-CI; G8979-GP-CI; G8980-GP-CI; J2270

== ENCOUNTER 2017-05-03 10:50 | Observation (INO) | payer SELFPAY ==
--- NOTE | 2017-05-03 12:12 | RAD ---
PA AND LATERAL VIEWS CHEST: HISTORY: Chills. FINDINGS: Comparison is made with the exam of 04/25/17. The heart size is normal. The lungs are expanded with out focal areas of consolidation, pneumothorax, or pleural effusions. Old right-sided rib fracture i s again seen. IMPRESSION: No radiographic evidence of acute cardiopulmonary process. POS: [facility]
[2017-05-03 12:18] LABS: ALT (SGPT) 21 U/L (8-55); AST (SGOT) 36 U/L (5-34); Albumin 4.1 g/dL (3.4-4.8); Alkaline Phosphatase 113 U/L (40-150); Anion Gap 18 mmol/L (10-20); BUN (Urea Nitrogen) 12 mg/dL (8.4-25.7); Bilirubin, Total 0.3 mg/dL (0.2-1.2); CK (CPK) 613 U/L (30-200); Calc. Creatinine Clearance 0 mL/min (70-130); Calcium 9.8 mg/dL (7.8-10.44); Carbon Dioxide 24 mmol/L (23-31); Chloride 99 mmol/L (98-107); Estimated GFR-MDRD Greater than 90; Globulin 4.5 g/dL (2.4-3.5); Glucose 114 mg/dL (80-115); Potassium 3.6 mmol/L (3.5-5.1); Protein, Total 8.6 g/dL (5.8-8.1); Sodium 137 mmol/L (136-145)
[2017-05-03 12:21] LABS: CKMB 5.5 ng/mL (0-6.6); Troponin I 0.011 ng/mL (< 0.028)
[2017-05-03] MEDS ORDERED: methylPREDNISolone Sod Succ/PF 125 MG/2 ML VIAL ONE (12:28)
[2017-05-03 12:34] LABS: #Lymphocytes 1.4 thou/uL (1.20-3.40); #Monocytes 0.8 thou/uL (0.11-0.59); #Neutrophils 4.3 thou/uL (1.40-6.50); %Basophils 0.4 % (0.0-1.0); %Eosinophils 0.3 % (0.0-10.0); %Lymphocytes 21.1 % (21.0-51.0); %Monocytes 12.6 % (0.0-10.0); %Neutrophils 65.5 % (42.0-75.0); Band 4 % (5-11); Hemoglobin 14.5 g/dL (14.0-18.0); Lymphocytes 14 % (21-51); MDiff Complete? YES; Mean Corpuscular HGB CONC 32.2 g/dL (32.0-36.0); Mean Corpuscular Hemoglobin 31.9 pg (27.0-31.0); Mean Corpuscular Volume 99.1 fl (80.0-94.0); Mean Platelet Volume 8.9 fL (7.4-10.4); Monocytes 9 % (0-10); Neutrophil 72 % (42-75); PLT Morphology Comment Appears Adequate; Platelet Count 229 thou/uL (130-400); RBC Distribution Width 15.2 % (11.5-14.5); RBC Morphology Normal; Red Blood Cell (RBC) Count 4.54 mill/uL (4.70-6.10); White Blood Cell (WBC) Count 6.8 thou/uL (4.8-10.8)
[2017-05-03] MEDS ORDERED: Oseltamivir 75 MG CAP PO SCH (14:15)
[2017-05-03] MEDS ORDERED: Senokot 8.6 MG TAB PO PRN (17:17)
[2017-05-03] MEDS ORDERED: Guaifenesin DM 100-10/5 ML UDCUP PO PRN (17:17)
[2017-05-03] MEDS ORDERED: Acetaminophen 325 MG TAB PO PRN (17:17)
[2017-05-03 18:47] VITALS: BMI 19.9
--- NOTE | 2017-05-03 19:05 | HP ---
REASON FOR ADMISSION: COPD exacerbation, influenza A. HISTORY OF PRESENTING ILLNESS: The patient gives history of having cough with expectoration from las t 3 days. This has become worse from last 24 hours. He thought he might have caught the flu and cam e to emergency room. In the ER, he has tested positive for influenza A. The patient has been taking Advair inhaler every 6 hours or so, which is the only inhaler he has. He states he is homeless and he is waiting for the holidays to get over to get into [employer]. He smokes 6-7 cigarettes a da y and drinks two shots of bourbon on a daily basis. The last 2 days he has been very cold and his [place] has been acting up and he has been wheezing now. He has felt warm, but has not really measured an y temperature at home. On arrival here, he has had a temperature of 99 degrees. PAST MEDICAL AND SURGICAL HISTORY: History of COPD, hypertension. He was hospitalized on the h [facility] for early frostbite of April. He was discharged on the same day. Hypertension, dyslipidemia, schizophrenia, bipolar disorder, alcohol abuse, marijuana abuse, malnutrition, homelessness, and her jes repair. CURRENT MEDICATIONS: Takes clonidine 0.1 mg p.o. twice daily, Protonix 40 mg p.o. daily, nicotine 14 mg transdermal patch daily, gabapentin 300 mg p.o. twice daily, Coreg 12.5 mg p.o. twice daily, Norv asc 5 mg p.o. daily. ALLERGIES: No known drug allergies. PERSONAL HISTORY: Smokes half pack a day and abuses marijuana. He has been off cocaine for the last 3 years or so per patient. Drinks two shots of bourbon on a daily basis. The patient is homeless. FAMILY HISTORY: Mother of [place] at the age of 65 years. Father was killed when he was 1 years old . His brother and sister were also and have had history of diabetes. Code status is FULL. Power of precise winder is his sister, Ms. Laureen Villatoro, the number to reach her is [phone]. REVIEW OF SYSTEMS: The following complete review of systems was negative, unless otherwise mentioned in the HPI or below: Constitutional: Weight loss or gain, ability to conduct usual activities. Skin: Rash, itching. Eyes: Double vision, pain. ENT/Mouth: Nose bleeding, neck stiffness, pain, tenderness. Cardiovascular: Palpitations, dyspnea on exertion, orthopnea. Respiratory: Shortness of breath, wheezing, cough, hemoptysis, fever or night sweats. Gastrointestinal: Poor appetite, abdominal pain, heartburn, nausea, vomiting, constipation, or diarr hea. Genitourinary: Urgency, frequency, dysuria, nocturia. Musculoskeletal: Pain, swelling. Neurologic/Psychiatric: Anxiety, depression. Allergy/Immunologic: Skin rash, bleeding tendency. PHYSICAL EXAMINATION: GENERAL: The patient is a 62-year-old male, who is currently not in any distress. VITAL SIGNS: Blood pressure 168/90, pulse 100 per minute, respiratory rate 24 per minute, temperatur e 99 degrees Fahrenheit, saturating 98% on room air. NECK: Supple, no elevated JVD. HEENT: Eyes: Extraocular muscles are intact. Pupils are reacting to light. Oral cavity: Mucous m embranes are dry. No exudates or congestion. CARDIOVASCULAR SYSTEM: S1, S2 heard. Regular rhythm. RESPIRATORY SYSTEM: Air entry 1+ bilateral. Scattered wheezes plus bilateral. ABDOMEN: Soft, bowel sounds heard. No tenderness, rigidity or guarding. EXTREMITIES: No peripheral edema or calf tenderness. VASCULAR SYSTEM: Peripheral pulses 1+ bilateral. No ischemic ulcerations or gangrene. CENTRAL NERVOUS SYSTEM: No gross focal deficits seen. The patient is alert, awake, oriented well. PSYCHIATRIC SYSTEM: The patient's mood is euthymic. No hallucinations or delusions. LABORATORY AND X-RAY FINDINGS: White count of 6.8, H&H are 14 and 45, platelet count 229 with 72% ne utrophils, MCV is 99. Electrolytes are stable. CK level 613. Troponin I is 0.01. Influenza A anti gen is positive on the nasal swab. Chest x-ray done shows no acute cardiopulmonary abnormalities. E KG done, sinus tachycardia at 109 beats per minute with poor R-wave progression. CLINICAL IMPRESSION AND PLAN: The patient will be under observation on medical floor for chronic obs tructive pulmonary disease exacerbation with influenza A. He will be on Tamiflu 75 mg twice daily an d empiric Levaquin. He will be on DuoNeb and Solu-Medrol IV. We will also gently hydrate him with n ormal saline at 60 mL per hour. If patient's wheezing is resolved in the morning, he will be dischar ged. Also in the morning, the patient says that his [employer] will open up and he will have a p lace to go. We will continue his Norvasc, Coreg, gabapentin, and Protonix as before for a recent Mal january-Mdarid ulcers.
[2017-05-03 19:51] LABS: Lactic Acid 3.5 mmol/L (0.5-2.2)
[2017-05-03] MEDS ORDERED: Famotidine 20 MG TAB PO SCH (21:00)
[2017-05-03] MEDS ORDERED: cloNIDine 0.1 MG TAB PO SCH (21:15)
[2017-05-03] MEDS ORDERED: Carvedilol 25 MG TAB PO SCH (21:15)
[2017-05-03] MEDS: Gabapentin 300 MG CAP PO SCH (21:36)
[2017-05-03] MEDS: Sodium Chloride 0.9% 1,000 ML IV SCH (21:36)
[2017-05-03] MEDS: Oseltamivir 75 MG CAP PO SCH (21:37)
[2017-05-04 05:53] LABS: #Lymphocytes 0.7 thou/uL (1.20-3.40); #Monocytes 0.1 thou/uL (0.11-0.59); #Neutrophils 4.6 thou/uL (1.40-6.50); %Lymphocytes 12.2 % (21.0-51.0); %Monocytes 2.1 % (0.0-10.0); %Neutrophils 85.7 % (42.0-75.0); Hemoglobin 12.1 g/dL (14.0-18.0); Mean Corpuscular HGB CONC 32.1 g/dL (32.0-36.0); Mean Corpuscular Hemoglobin 31.9 pg (27.0-31.0); Mean Corpuscular Volume 99.5 fl (80.0-94.0); Mean Platelet Volume 8.6 fL (7.4-10.4); Platelet Count 190 thou/uL (130-400); RBC Distribution Width 15.4 % (11.5-14.5); Red Blood Cell (RBC) Count 3.79 mill/uL (4.70-6.10); White Blood Cell (WBC) Count 5.4 thou/uL (4.8-10.8)
[2017-05-04 06:10] LABS: Anion Gap 12 mmol/L (10-20); BUN (Urea Nitrogen) 12 mg/dL (8.4-25.7); Calc. Creatinine Clearance 71 mL/min (70-130); Calcium 9.1 mg/dL (7.8-10.44); Carbon Dioxide 21 mmol/L (23-31); Chloride 105 mmol/L (98-107); Estimated GFR-MDRD Greater than 90; Glucose 180 mg/dL (80-115); Potassium 4.1 mmol/L (3.5-5.1); Sodium 134 mmol/L (136-145)
[2017-05-04] MEDS ORDERED: Carvedilol 25 MG TAB PO SCH (08:00)
[2017-05-04] MEDS: Gabapentin 300 MG CAP PO SCH (08:40)
[2017-05-04] MEDS: Enoxaparin Sodium 40 MG/0.4 ML SYRINGE SC SCH ×2 (08:41→08:44)
[2017-05-04] MEDS: Oseltamivir 75 MG CAP PO SCH (08:41)
[2017-05-04] MEDS: Sodium Chloride 0.9% 1,000 ML IV SCH (08:45)
[2017-05-04] MEDS ORDERED: cloNIDine 0.1 MG TAB PO SCH (09:00)
[2017-05-04] MEDS ORDERED: Amlodipine 5 MG TAB PO SCH (09:00)
[2017-05-04] MEDS ORDERED: PROVENTIL INHALER 6.7 G (200 INHALATIONS) INH PRN (10:37)
--- NOTE | 2017-05-04 10:43 | PDOC.PN ---
- Subjective Encounter Start Date: 05/04/17 Encounter Start Time: 10:20 Subjective: Continued cough and anterior chest pain with cough. No fever overnight. - Objective MAR Reviewed: Yes Vital Signs & Weight: Vital Signs (12 hours) Temp Pulse Resp BP Pulse Ox 05/04/17 08:05 98.9 F 75 20 178/79 H 95 05/04/17 08:00 98.9 F 75 20 05/04/17 06:35 99 05/04/17 06:31 80 20 99 05/04/17 04:00 73 20 158/79 H 98 05/04/17 00:32 96 05/04/17 00:31 96 05/04/17 00:07 98.5 F 80 20 148/95 H 100 Weight Weight 127 lb 4.494 oz I&O: 05/03/17 05/04/17 05/05/17 06:59 06:59 06:59 Intake Total 817 Output Total 450 Balance 367 Result Diagrams: 05/04/17 05:32 05/04/17 05:32 Phys Exam - Physical Examination Constitutional: NAD HEENT: moist MMs Respiratory: no wheezing, no rales, no rhonchi, clear to auscultation bilateral TTP lower rib cages reproduces pain Cardiovascular: RRR, no significant murmur Gastrointestinal: soft, positive bowel sounds TTP GRETCHEN Musculoskeletal: no edema Neurological: non-focal, moves all 4 limbs Psychiatric: normal affect, A&O x 3 Dx/Plan (1) Influenza A Code(s): J10.1 - FLU DUE TO OTH IDENT INFLUENZA VIRUS W OTH RESP MANIFEST Status: Acute (2) COPD with exacerbation Code(s): J44.1 - CHRONIC OBSTRUCTIVE PULMONARY DISEASE W (ACUTE) EXACERBATION Status: Acute Comment: sating fine on RA, no wheezes on exam, suitable for outpatient treatment (3) ETOH abuse Code(s): F10.10 - ALCOHOL ABUSE, UNCOMPLICATED Status: Chronic (4) Tobacco abuse Code(s): Z72.0 - TOBACCO USE Status: Chronic (5) HIV (human immunodeficiency virus infection) Status: Chronic Comment: Previously dx but unknown how and all our antibody tests have been negative, on no treatment - Plan cont current plan of care D/C with albuterol and oral steroids. Case management to work with patient -: to try and find place to stay as he is homeless. * . - Discharge Day Encounter end time: 10:50
--- NOTE | 2017-05-04 11:24 | DIS ---
PRIMARY CARE PHYSICIAN: Establishing with [facility]. DIAGNOSES ON ADMISSION: 1. Influenza A. 2. Chronic obstructive pulmonary disease exacerbation. DIAGNOSES ON DISCHARGE: 1. Influenza A. 2. Chronic obstructive pulmonary disease exacerbation, resolved. PROCEDURES: Chest x-ray showing no evidence of pneumonia. CONSULTATIONS: None. SUMMARY OF HOSPITAL COURSE: This is a 62-year-old male who is well known to our [facility] service. He is homeless and abuses alcohol and history of cocaine use as well. He presented t o the emergency room on 04/29/2017 with a stage I frostbite. He was evaluated by Dr. Leonard who agre ed was not a surgical candidate and he was discharged to follow up with [facility]. The patient is homeless. He reports he is trying to get into [facility] to stay, but was unable to until he said initially 05/04/2017. He was seen on the and with cough, fever, and anterior chest pain wit h cough, found to have influenza A. He was put in the hospital with Tamiflu and Levaquin. He did no t have any elevated white blood cell count, had not had any fevers and he was off oxygen since last n ight, breathing well this morning, just continued cough with anterior chest wall pain. His vital sig ns have been stable and he is stable for discharge. He does now report that [facility] will like ly not be open until the , he does have appointment with [facility] on the . DISCHARGE MANAGEMENT: Discharged to home or whatever assisted he can arrange. MEDICATIONS: I have sent a prescription for albuterol inhaler and 6 days of prednisone 20 mg daily t o the pharmacy for him. He is also to continue his carvedilol 12.5 mg, amlodipine 5 mg daily, his ni cotine patch, his gabapentin 300 mg twice a day. His Colace twice a day and clonidine twice a day an d his Protonix 40 mg daily that he was discharged on previously. DIET: Healthy heart, low sodium diet. He is to stop all tobacco and alcohol use and to avoid illici t drugs. ACTIVITIES: As tolerated. FOLLOWUP: Follow up with [facility] as previously scheduled.
[2017-05-04 12:58] VITALS: BP 130/75; TEMP 96.9
--- NOTE | 2017-06-12 20:16 | EKG ---
Test Reason : Blood Pressure : / mmHG Vent. Rate : 109 BPM Atrial Rate : 109 BPM P-R Int : 126 ms QRS Dur : 084 ms QT Int : 352 ms P-R-T Axes : 076 -74 054 degrees QTc Int : 474 ms Sinus tachycardia Possible Left atrial enlargement Left axis deviation Abnormal ECG Confirmed by TO OSWALD Cruz ([id number]), features editor ALESSIO FUNG ([id number]) on 06/12/2017 8:16:35 PM Referred By: Confirmed By:OSWALD GALAN M.D.
== END 2017-05-04 15:30 | disposition home or self-care (01) ==
LOC: ERS 10:50 → 2SW 18:22
PROVIDERS: ADMIT Internal Medicine; ATTEND Internal Medicine
DX: J10.1 Influenza due to other identified influenza virus with other respiratory manifestations (principal); J44.1 Chronic obstructive pulmonary disease with (acute) exacerbation; F10.10 Alcohol abuse, uncomplicated; F17.210 Nicotine dependence, cigarettes, uncomplicated; I10 Essential (primary) hypertension; E78.5 Hyperlipidemia, unspecified; F20.9 Schizophrenia, unspecified; F31.9 Bipolar disorder, unspecified; F12.10 Cannabis abuse, uncomplicated; E46 Unspecified protein-calorie malnutrition; Z68.1 Body mass index [BMI] 19.9 or less, adult; Z79.899 Other long term (current) drug therapy; Z98.890 Other specified postprocedural states; Z59.0 Homelessness
CPT/HCPCS: 36415; 71046; 80048; 80053; 82550; 82553; 83605; 84484; 85025; 87040; 87804; 93005; 94640; 96361; 96374; 96376; G0378; J1650; J2920; J2930; J7620

== ENCOUNTER 2017-05-05 00:13 | Emergency (ER) | payer SELFPAY | END 2017-05-05 08:18 | disposition left against medical advice (07) | LOC: ERS 00:13 | DX: Z53.21 Procedure and treatment not carried out due to patient leaving prior to being seen by health care provider (principal) ==

== ENCOUNTER 2017-05-05 14:42 | Emergency (ER) | payer SELFPAY ==
[2017-05-05 20:47] LABS: #Basophils 0.1 thou/uL (0.0-0.2); #Lymphocytes 1.8 thou/uL (1.20-3.40); #Monocytes 0.7 thou/uL (0.11-0.59); #Neutrophils 4.3 thou/uL (1.40-6.50); %Eosinophils 0.3 % (0.0-10.0); %Lymphocytes 26.5 % (21.0-51.0); %Monocytes 9.4 % (0.0-10.0); %Neutrophils 62.7 % (42.0-75.0); Hemoglobin 13.4 g/dL (14.0-18.0); Mean Corpuscular Hemoglobin 32.8 pg (27.0-31.0); Mean Corpuscular Volume 99.4 fl (80.0-94.0); Mean Platelet Volume 8.7 fL (7.4-10.4); Platelet Count 210 thou/uL (130-400); RBC Distribution Width 15.3 % (11.5-14.5); Red Blood Cell (RBC) Count 4.08 mill/uL (4.70-6.10); White Blood Cell (WBC) Count 6.9 thou/uL (4.8-10.8)
[2017-05-05] MEDS ORDERED: Benzonatate 100 MG CAP PO SCH (21:00)
[2017-05-05 21:15] LABS: ALT (SGPT) 29 U/L (8-55); AST (SGOT) 49 U/L (5-34); Albumin 3.3 g/dL (3.4-4.8); Alkaline Phosphatase 85 U/L (40-150); Anion Gap 13 mmol/L (10-20); BUN (Urea Nitrogen) 18 mg/dL (8.4-25.7); Bilirubin, Total 0.2 mg/dL (0.2-1.2); Calc. Creatinine Clearance 0 mL/min (70-130); Calcium 9.4 mg/dL (7.8-10.44); Carbon Dioxide 25 mmol/L (23-31); Chloride 104 mmol/L (98-107); Estimated GFR-MDRD Greater than 90; Glucose 96 mg/dL (80-115); Potassium 4.1 mmol/L (3.5-5.1); Protein, Total 7.3 g/dL (5.8-8.1); Sodium 138 mmol/L (136-145)
--- NOTE | 2017-05-05 21:31 | RAD ---
EXAM: ONE VIEW CHEST 05/05/17 COMPARISON: 04/26/17 HISTORY: Dyspnea. FINDINGS: Portable upright chest: Normal cardiac silhouette. Pulmonary vessels and hilum are normal. Costophrenic angles are clear. No consolidation or mass. No pneumothorax. Old right rib fractures. IMPRESSION: No acute cardiopulmonary process. POS: [facility]
== END 2017-05-05 22:50 | disposition home or self-care (01) ==
LOC: ERS 14:42
DX: R05 Cough (principal); I10 Essential (primary) hypertension; K21.9 Gastro-esophageal reflux disease without esophagitis; F17.210 Nicotine dependence, cigarettes, uncomplicated; F31.9 Bipolar disorder, unspecified; F41.9 Anxiety disorder, unspecified; F20.9 Schizophrenia, unspecified
CPT/HCPCS: 36415; 71045; 80053; 85025; 94640

== ENCOUNTER 2017-05-07 22:41 | Emergency (ER) | payer SELFPAY ==
[2017-05-08 00:31] LABS: Hemoglobin 13.7 g/dL (14.0-18.0); Mean Corpuscular Hemoglobin 32.6 pg (27.0-31.0); Mean Corpuscular Volume 98.7 fl (80.0-94.0); Mean Platelet Volume 8.7 fL (7.4-10.4); Platelet Count 224 thou/uL (130-400); RBC Distribution Width 14.9 % (11.5-14.5); Red Blood Cell (RBC) Count 4.21 mill/uL (4.70-6.10); White Blood Cell (WBC) Count 4.7 thou/uL (4.8-10.8)
[2017-05-08 00:45] LABS: ALT (SGPT) 25 U/L (8-55); AST (SGOT) 31 U/L (5-34); Albumin 3.6 g/dL (3.4-4.8); Alkaline Phosphatase 97 U/L (40-150); Anion Gap 14 mmol/L (10-20); BUN (Urea Nitrogen) 15 mg/dL (8.4-25.7); Bilirubin, Total 0.3 mg/dL (0.2-1.2); Calc. Creatinine Clearance 0 mL/min (70-130); Calcium 9.3 mg/dL (7.8-10.44); Carbon Dioxide 27 mmol/L (23-31); Chloride 100 mmol/L (98-107); Estimated GFR-MDRD 81; Glucose 138 mg/dL (80-115); Potassium 3.9 mmol/L (3.5-5.1); Protein, Total 7.6 g/dL (5.8-8.1); Sodium 137 mmol/L (136-145)
[2017-05-08 01:06] LABS: Band 1 % (5-11); Eosinophils 4 % (0-10); Lymphocytes 45 % (21-51); MDiff Complete? YES; Monocytes 11 % (0-10); Neutrophil 38 % (42-75); Reactive Lymphocytes 1 % (0-10)
== END 2017-05-08 06:47 | disposition home or self-care (01) ==
LOC: ERS 22:41
DX: K29.71 Gastritis, unspecified, with bleeding (principal); I10 Essential (primary) hypertension; K21.9 Gastro-esophageal reflux disease without esophagitis; F31.9 Bipolar disorder, unspecified; F20.9 Schizophrenia, unspecified; J44.9 Chronic obstructive pulmonary disease, unspecified; F41.9 Anxiety disorder, unspecified; F17.210 Nicotine dependence, cigarettes, uncomplicated
CPT/HCPCS: 36415; 80053; 85025; 99285

== ENCOUNTER 2017-05-08 23:59 | Emergency (ER) | payer SELFPAY ==
[2017-05-09] MEDS ORDERED: Ondansetron ODT 4 MG TAB ONE (02:09)
[2017-05-09] MEDS ORDERED: Ondansetron HCl/PF 4 MG/2 ML Vial ONE (02:09)
== END 2017-05-09 03:30 | disposition home or self-care (01) ==
LOC: ERS 23:59
DX: K29.00 Acute gastritis without bleeding (principal); J44.9 Chronic obstructive pulmonary disease, unspecified; I10 Essential (primary) hypertension; K21.9 Gastro-esophageal reflux disease without esophagitis; E78.00 Pure hypercholesterolemia, unspecified; F17.210 Nicotine dependence, cigarettes, uncomplicated; F41.9 Anxiety disorder, unspecified; F20.9 Schizophrenia, unspecified; F31.9 Bipolar disorder, unspecified
CPT/HCPCS: 99283; J2405; Q0162

== ENCOUNTER 2017-05-13 21:01 | Emergency (ER) | payer SELFPAY ==
[2017-05-14 02:21] LABS: #Basophils 0.1 thou/uL (0.0-0.2); #Eosinphils 0.1 thou/uL (0.0-0.7); #Lymphocytes 2.2 thou/uL (1.20-3.40); #Monocytes 0.7 thou/uL (0.11-0.59); #Neutrophils 2.1 thou/uL (1.40-6.50); %Basophils 1.3 % (0.0-1.0); %Eosinophils 2.9 % (0.0-10.0); %Lymphocytes 42.6 % (21.0-51.0); %Monocytes 13.8 % (0.0-10.0); %Neutrophils 39.6 % (42.0-75.0); Hemoglobin 13.5 g/dL (14.0-18.0); Mean Corpuscular HGB CONC 33.7 g/dL (32.0-36.0); Mean Corpuscular Hemoglobin 33.4 pg (27.0-31.0); Mean Corpuscular Volume 99.1 fl (80.0-94.0); Mean Platelet Volume 8.5 fL (7.4-10.4); Platelet Count 305 thou/uL (130-400); RBC Distribution Width 14.5 % (11.5-14.5); Red Blood Cell (RBC) Count 4.05 mill/uL (4.70-6.10); White Blood Cell (WBC) Count 5.2 thou/uL (4.8-10.8)
== END 2017-05-14 03:25 | disposition home or self-care (01) ==
LOC: ERS 21:01
DX: K62.5 Hemorrhage of anus and rectum (principal); I10 Essential (primary) hypertension; K21.9 Gastro-esophageal reflux disease without esophagitis; E78.00 Pure hypercholesterolemia, unspecified; F31.9 Bipolar disorder, unspecified; F41.9 Anxiety disorder, unspecified; F20.9 Schizophrenia, unspecified; F17.290 Nicotine dependence, other tobacco product, uncomplicated; J44.9 Chronic obstructive pulmonary disease, unspecified
CPT/HCPCS: 36415; 82274; 85025; 99406

== ENCOUNTER 2017-05-14 17:00 | Emergency (ER) | payer SELFPAY | END 2017-05-14 18:30 | disposition home or self-care (01) | LOC: ERS 17:00 | DX: Z02.89 Encounter for other administrative examinations (principal); I10 Essential (primary) hypertension; K21.9 Gastro-esophageal reflux disease without esophagitis; E78.00 Pure hypercholesterolemia, unspecified; J44.9 Chronic obstructive pulmonary disease, unspecified; F31.9 Bipolar disorder, unspecified; F20.9 Schizophrenia, unspecified; F41.9 Anxiety disorder, unspecified; F17.290 Nicotine dependence, other tobacco product, uncomplicated | CPT/HCPCS: 99283 ==

== ENCOUNTER 2017-05-28 01:07 | Emergency (ER) | payer SELFPAY ==
[2017-05-28 02:15] LABS: Eosinophils 2 % (0-10); Hemoglobin 14.8 g/dL (14.0-18.0); Lymphocytes 53 % (21-51); MDiff Complete? YES; Mean Corpuscular HGB CONC 33.2 g/dL (32.0-36.0); Mean Corpuscular Hemoglobin 32.3 pg (27.0-31.0); Mean Corpuscular Volume 97.2 fl (80.0-94.0); Mean Platelet Volume 9.3 fL (7.4-10.4); Monocytes 7 % (0-10); Neutrophil 38 % (42-75); PLT Morphology Comment Appears Adequate; Platelet Count 218 thou/uL (130-400); RBC Distribution Width 13.4 % (11.5-14.5); Red Blood Cell (RBC) Count 4.59 mill/uL (4.70-6.10); White Blood Cell (WBC) Count 4.9 thou/uL (4.8-10.8)
--- NOTE | 2017-05-28 07:43 | RAD ---
CHEST 1 VIEW: Date: 05/28/17 HISTORY: Cough. COMPARISON: Chest 1 view dated 05/05/17. FINDINGS: Multiple old right-sided rib fractures. There is a parenchymal opacity projecting over the right mid lung peripherally. This is increased from comparison examination. No pneumothorax. IMPRESSION: Increased peripheral opacity right mid lung may reflect consolidation versus scarring. There are some adjacent old right-sided rib fractures. CT may be beneficial. CODE: Lung nodule POS: [facility]
== END 2017-05-28 02:35 | disposition home or self-care (01) ==
LOC: ERS 01:07
DX: R05 Cough (principal); I10 Essential (primary) hypertension; J44.9 Chronic obstructive pulmonary disease, unspecified; F31.9 Bipolar disorder, unspecified; F41.9 Anxiety disorder, unspecified; F17.290 Nicotine dependence, other tobacco product, uncomplicated; F20.9 Schizophrenia, unspecified; K21.9 Gastro-esophageal reflux disease without esophagitis
CPT/HCPCS: 36415; 71045; 85025

== ENCOUNTER 2017-05-28 06:37 | Emergency (ER) | payer SELFPAY | END 2017-05-28 07:25 | disposition home or self-care (01) | LOC: ERS 06:37 | DX: Z00.00 Encounter for general adult medical examination without abnormal findings (principal); I10 Essential (primary) hypertension; J44.9 Chronic obstructive pulmonary disease, unspecified; F31.9 Bipolar disorder, unspecified; F20.9 Schizophrenia, unspecified; F41.9 Anxiety disorder, unspecified; F17.290 Nicotine dependence, other tobacco product, uncomplicated | CPT/HCPCS: 99281 ==

== ENCOUNTER 2017-05-29 00:16 | Emergency (ER) | payer SELFPAY | END 2017-05-29 01:15 | disposition home or self-care (01) | LOC: ERS 00:16 | DX: R05 Cough (principal); J44.9 Chronic obstructive pulmonary disease, unspecified; F17.210 Nicotine dependence, cigarettes, uncomplicated; F41.9 Anxiety disorder, unspecified; F31.9 Bipolar disorder, unspecified; F20.9 Schizophrenia, unspecified | CPT/HCPCS: 99406 ==

== ENCOUNTER 2017-05-30 19:40 | Emergency (ER) | payer SELFPAY ==
[2017-05-30 20:18] LABS: Bilirubin Negative (Negative); Blood, Urine Negative (Negative); Clarity CLEAR (Clear); Glucose, Urine (Dipstick) Negative (Negative); Leukocyte Negative (Negative); Nitrite Negative (Negative); Protein, Urine (Dipstick) 30 mg/dL (Neg-Trace); Specific Gravity, Urine 1.024 (1.002-1.036); pH, Urine 6.5 (5.0-9.0)
[2017-05-30 20:20] LABS: Bacteria/HPF None Seen HPF (None Seen); Hyaline Casts/LPF 0-3 HYALINE CAST LPF (0-3 Hyaline); RBC/HPF 0-3 HPF (0-3); Squamous Epithelial None Seen HPF (0-3); WBC/HPF 0-3 HPF (0-3)
--- NOTE | 2017-05-30 22:23 | ULT ---
TESITCULAR ULTRASOUND: Date: 05/30/17 HISTORY: Two small hard painful areas in the scrotum. COMPARISON: None. TECHNIQUE: Simpson scale, color flow, Doppler imaging, and spectral waveform analysis performed of left and right h emiscrotum. FINDINGS: RIGHT HEMISCROTUM: Right testicle has a homogeneous echotexture. No intratesticular mass. Right testicle measures 3.6 x 2.2 x 2.6 cm. There is a 0.9 cm cyst associated with the right epididymis. Small amount of fluid in t he right hemiscrotum. A calcification along the periphery of the inner aspect of the scrotum is noted , adjacent to the fluid in the right hemiscrotum. This area of calcification measures 0.6 cm. LEFT HEMISCROTUM: The left testicle has a homogeneous echotexture. No intratesticular mass. Left testicle measures 2.1 x 3.6 x 2.9 cm. Left epididymis has a normal echotexture. There is a cyst in the left epididymis gavino uring 0.7 cm. Echogenic focus in the left hemiscrotum may represent an area of calcification measurin g 0.6 cm. Trace amount of fluid in the left hemiscrotum is noted. TESTICULAR DOPPLER: Symmetric vascular flow to the left and right testicle. IMPRESSION: 1. Homogeneous echotexture of the testicles. No masses within the testicles. 2. Symmetric vascular flow to the testicles. 3. Nonspecific echogenic foci in the left and right hemiscrotum which may represent scrotal based ca lcifications. Right greater than left hydrocele. POS: [facility]
== END 2017-05-30 22:50 | disposition home or self-care (01) ==
LOC: ERS 19:40
DX: N43.3 Hydrocele, unspecified (principal); I10 Essential (primary) hypertension; J44.9 Chronic obstructive pulmonary disease, unspecified; K21.9 Gastro-esophageal reflux disease without esophagitis; F41.9 Anxiety disorder, unspecified; F31.9 Bipolar disorder, unspecified; F20.9 Schizophrenia, unspecified; F17.210 Nicotine dependence, cigarettes, uncomplicated
CPT/HCPCS: 76870; 81003; 81015; 93976

== ENCOUNTER 2017-06-03 03:31 | Emergency (ER) | payer SELFPAY ==
[2017-06-03] MEDS ORDERED: Acetaminophen 500 MG TAB ONE (03:52)
--- NOTE | 2017-06-03 07:52 | CT ---
PRELIMINARY REPORT/[facility]/EMERGENCY AFTER HOURS PROCEDURE: EXAM: CT Head Without Intravenous Contrast EXAM DATE/TIME: 06/03/2017 3:57 AM CLINICAL HISTORY: 62 years old, male; Pain; Headache; Headache not specified; Patient HX: Azar 62 presents to ed with nose bleeds for the past week. Pt was seen at [place] and was dx with an aneurysm. States that he has had H A for 2 weeks, and epistaxis for the past week. 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 State s that he may have pna as he is still "coughing up green stuff". TECHNIQUE: Axial computed tomography images of the head/brain without intravenous contrast. COMPARISON: CT Brain WO Con 2014-10-03 01:18 FINDINGS: Brain: No evidence of acute intracranial hemorrhage, extraxial fluid or midline shift. No evidence of acute large vessel infarction. Ventricles: Unremarkable. No ventriculomegaly. Bones/joints: Unremarkable. No acute fracture. Soft tissues: Unremarkable. Sinuses: Unremarkable as visualized. No acute sinusitis. Mastoid air cells: Unremarkable as visualized. No mastoid effusion. IMPRESSION: 1. No evidence of acute intracranial hemorrhage, extraxial fluid or midline shift. 2. No evidence of acute large vessel infarction. Thank you for allowing us to participate in the care of your patient. Dictated and Authenticated by: Anibal Brandon MD 06/03/2017 4:08 AM Central Time ([place] & [place]) FINAL REPORT HEAD CT WITHOUT CONTRAST: Date: 06/03/17 COMPARISON: 02/23/17. HISTORY: Headache. FINDINGS: I agree with the preliminary report given by Ang. Imaged paranasal sinuses and mastoid air cells are well aerated. There is no displaced calvarial frac ture. No intracranial hemorrhage, midline shift, mass effect, or ventricular enlargement. Patient reports a history of intracranial aneurysm, not visualized on this exam. IMPRESSION: No intracranial hemorrhage. If there is concern for intracranial aneurysm, follow-up CT angiogram of the head is advised. POS: [facility]
--- NOTE | 2017-06-03 07:56 | RAD ---
PA AND LATERAL VIEWS OF CHEST: Date: 06/03/17 HISTORY: Cough. FINDINGS: Comparison made with exam of 05/28/17. The heart size is normal. The lungs are well expanded with old right-sided rib fractures. No lobar co nsolidation, pneumothoraces, or pleural effusions are seen. IMPRESSION: No acute process. POS: [facility]
== END 2017-06-03 05:10 | disposition home or self-care (01) ==
LOC: ERS 03:31
DX: R51 Headache (principal); R05 Cough; I10 Essential (primary) hypertension; K21.9 Gastro-esophageal reflux disease without esophagitis; E78.00 Pure hypercholesterolemia, unspecified; J44.9 Chronic obstructive pulmonary disease, unspecified; F41.9 Anxiety disorder, unspecified; F31.9 Bipolar disorder, unspecified; F20.9 Schizophrenia, unspecified; F17.210 Nicotine dependence, cigarettes, uncomplicated
CPT/HCPCS: 70450; 71046

== ENCOUNTER 2017-06-03 22:27 | Emergency (ER) | payer SELFPAY ==
[2017-06-03] MEDS ORDERED: Ondansetron ODT 4 MG TAB ONE (23:26)
== END 2017-06-03 23:44 | disposition home or self-care (01) ==
LOC: ERS 22:27
DX: R11.0 Nausea (principal); I10 Essential (primary) hypertension; K21.9 Gastro-esophageal reflux disease without esophagitis; E78.00 Pure hypercholesterolemia, unspecified; J44.9 Chronic obstructive pulmonary disease, unspecified; F41.9 Anxiety disorder, unspecified; F31.9 Bipolar disorder, unspecified; F20.9 Schizophrenia, unspecified; F17.210 Nicotine dependence, cigarettes, uncomplicated
CPT/HCPCS: 99283; Q0162

== ENCOUNTER 2017-06-04 22:59 | Emergency (ER) | payer SELFPAY | END 2017-06-05 07:19 | disposition left against medical advice (07) | LOC: ERS 22:59 | DX: Z53.21 Procedure and treatment not carried out due to patient leaving prior to being seen by health care provider (principal) ==

== ENCOUNTER 2017-06-07 15:18 | Emergency (ER) | payer SELFPAY ==
[2017-06-07 16:12] LABS: #Basophils 0.1 thou/uL (0.0-0.2); #Eosinphils 0.1 thou/uL (0.0-0.7); #Monocytes 0.5 thou/uL (0.11-0.59); #Neutrophils 2.5 thou/uL (1.40-6.50); %Basophils 0.9 % (0.0-1.0); %Eosinophils 1.4 % (0.0-10.0); %Lymphocytes 48.3 % (21.0-51.0); %Monocytes 8.4 % (0.0-10.0); Hemoglobin 15.1 g/dL (14.0-18.0); Mean Corpuscular HGB CONC 32.6 g/dL (32.0-36.0); Mean Corpuscular Hemoglobin 32.3 pg (27.0-31.0); Mean Corpuscular Volume 98.9 fl (80.0-94.0); Mean Platelet Volume 8.7 fL (7.4-10.4); Platelet Count 212 thou/uL (130-400); RBC Distribution Width 13.9 % (11.5-14.5); Red Blood Cell (RBC) Count 4.69 mill/uL (4.70-6.10); White Blood Cell (WBC) Count 6.1 thou/uL (4.8-10.8)
[2017-06-07 16:29] LABS: Anion Gap 17 mmol/L (10-20); BUN (Urea Nitrogen) 11 mg/dL (8.4-25.7); Calc. Creatinine Clearance 0 mL/min (70-130); Calcium 9.4 mg/dL (7.8-10.44); Carbon Dioxide 21 mmol/L (23-31); Chloride 105 mmol/L (98-107); Estimated GFR-MDRD Greater than 90; Glucose 60 mg/dL (80-115); Sodium 139 mmol/L (136-145)
[2017-06-07 16:37] LABS: CKMB 13.8 ng/mL (0-6.6)
[2017-06-07 16:38] LABS: Troponin I 0.027 ng/mL (< 0.028)
--- NOTE | 2017-06-07 17:40 | RAD ---
PORTABLE CHEST ONE VIEW: Date: 06-07-17 Time 4:52 p.m. History: Chest pain FINDINGS: Comparison made with exam of 05-28-17. The heart size is normal. The aorta is tortuous. Multiple old right sided rib fractures are seen. No confluent areas of consolidation or pneumothoraces or pleural effusions identified. IMPRESSION: No acute process. POS: [facility]
[2017-06-07 19:24] LABS: CKMB 12.3 ng/mL (0-6.6); Critical Call CKMBM RESULT DECREASING
== END 2017-06-07 20:55 ==
LOC: ERS 15:18
DX: R07.9 Chest pain, unspecified (principal); I10 Essential (primary) hypertension; K21.9 Gastro-esophageal reflux disease without esophagitis; E78.00 Pure hypercholesterolemia, unspecified; J44.9 Chronic obstructive pulmonary disease, unspecified; B20 Human immunodeficiency virus [HIV] disease; F41.9 Anxiety disorder, unspecified; F31.9 Bipolar disorder, unspecified; F20.9 Schizophrenia, unspecified; F17.210 Nicotine dependence, cigarettes, uncomplicated
CPT/HCPCS: 36415; 36416; 71045; 80048; 82553; 84484; 85025; 93005

== ENCOUNTER 2017-07-01 08:36 | Emergency (ER) | payer SELFPAY ==
[2017-07-01] MEDS ORDERED: cloNIDine 0.1 MG TAB ONE (10:14)
--- NOTE | 2017-07-03 13:04 | EKG ---
Test Reason : HIGH BP Blood Pressure : / mmHG Vent. Rate : 065 BPM Atrial Rate : 065 BPM P-R Int : 152 ms QRS Dur : 080 ms QT Int : 426 ms P-R-T Axes : 054 -37 063 degrees QTc Int : 443 ms Normal sinus rhythm Left axis deviation Abnormal ECG Confirmed by CLARISA KING, FRANCINE ([id number]), commissioning editor SHANE HANCOCK ([id number]) on 07/03/2017 1:04:34 PM Referred By: Confirmed By:FRANCINE MCKENNA MD
== END 2017-07-01 10:28 | disposition home or self-care (01) ==
LOC: ERS 08:36
DX: I10 Essential (primary) hypertension (principal); Z91.14 Patient's other noncompliance with medication regimen; K21.9 Gastro-esophageal reflux disease without esophagitis; J44.9 Chronic obstructive pulmonary disease, unspecified; F41.9 Anxiety disorder, unspecified; F31.9 Bipolar disorder, unspecified; F20.9 Schizophrenia, unspecified; F17.210 Nicotine dependence, cigarettes, uncomplicated
CPT/HCPCS: 93005

== ENCOUNTER 2017-07-06 05:26 | Emergency (ER) | payer SELFPAY ==
[2017-07-06 07:27] LABS: #Basophils 0.1 thou/uL (0.0-0.2); #Eosinphils 0.1 thou/uL (0.0-0.7); #Lymphocytes 2.5 thou/uL (1.20-3.40); #Monocytes 0.4 thou/uL (0.11-0.59); #Neutrophils 2.4 thou/uL (1.40-6.50); %Lymphocytes 44.9 % (21.0-51.0); %Monocytes 7.3 % (0.0-10.0); %Neutrophils 43.7 % (42.0-75.0); Hemoglobin 16.6 g/dL (14.0-18.0); Mean Corpuscular HGB CONC 32.3 g/dL (32.0-36.0); Mean Corpuscular Hemoglobin 30.7 pg (27.0-31.0); Mean Platelet Volume 9.4 fL (7.4-10.4); Platelet Count 189 thou/uL (130-400); RBC Distribution Width 13.1 % (11.5-14.5); Red Blood Cell (RBC) Count 5.42 mill/uL (4.70-6.10); White Blood Cell (WBC) Count 5.5 thou/uL (4.8-10.8)
--- NOTE | 2017-07-06 07:58 | RAD ---
PORTABLE CHEST 1 VIEW: Date: 07/06/17 Time: 0711 hours HISTORY: Cough. FINDINGS: Comparison made with exam of 06/07/17. The heart size is normal. Multiple old right-sided rib fractures are redemonstrated. The aorta is tor tuous. The lungs are well expanded without focal areas of consolidation, pneumothoraces, or pleural e ffusions. IMPRESSION: No radiographic evidence of acute cardiopulmonary process. POS: [facility]
== END 2017-07-06 08:04 | disposition home or self-care (01) ==
LOC: ERS 05:26
DX: R05 Cough (principal); E78.00 Pure hypercholesterolemia, unspecified; J44.9 Chronic obstructive pulmonary disease, unspecified; I10 Essential (primary) hypertension; F41.9 Anxiety disorder, unspecified; K21.9 Gastro-esophageal reflux disease without esophagitis; F31.9 Bipolar disorder, unspecified; F20.9 Schizophrenia, unspecified; F17.210 Nicotine dependence, cigarettes, uncomplicated; Z79.899 Other long term (current) drug therapy
CPT/HCPCS: 36415; 71045; 85025

== ENCOUNTER 2017-07-07 21:36 | Emergency (ER) | payer SELFPAY ==
[2017-07-07 22:56] LABS: Bilirubin Negative (Negative); Blood, Urine Trace (Negative); Clarity CLEAR (Clear); Glucose, Urine (Dipstick) Negative (Negative); Leukocyte Negative (Negative); Nitrite Negative (Negative); Protein, Urine (Dipstick) 100 mg/dL (Neg-Trace); Specific Gravity, Urine 1.014 (1.002-1.036)
[2017-07-07 22:58] LABS: Bacteria/HPF None Seen HPF (None Seen); Hyaline Casts/LPF 0-3 HYALINE CAST LPF (0-3 Hyaline); Pathc Cast-AUWi Flag 0.13 (0-2.49); RBC/HPF None Seen HPF (0-3); Squamous Epithelial None Seen HPF (0-3); WBC/HPF None Seen HPF (0-3)
== END 2017-07-07 23:15 | disposition home or self-care (01) ==
LOC: ERS 21:36
DX: R31.9 Hematuria, unspecified (principal); K21.9 Gastro-esophageal reflux disease without esophagitis; I10 Essential (primary) hypertension; J44.9 Chronic obstructive pulmonary disease, unspecified; F41.9 Anxiety disorder, unspecified; F31.9 Bipolar disorder, unspecified; F20.9 Schizophrenia, unspecified; F17.210 Nicotine dependence, cigarettes, uncomplicated
CPT/HCPCS: 81003; 81015; 99406

== ENCOUNTER 2017-07-13 18:33 | Emergency (ER) | payer SELFPAY ==
[2017-07-13 22:08] LABS: #Eosinphils 0.2 thou/uL (0.0-0.7); #Lymphocytes 2.8 thou/uL (1.20-3.40); #Monocytes 0.5 thou/uL (0.11-0.59); #Neutrophils 2.1 thou/uL (1.40-6.50); %Basophils 0.8 % (0.0-1.0); %Eosinophils 3.5 % (0.0-10.0); %Lymphocytes 49.6 % (21.0-51.0); %Monocytes 8.4 % (0.0-10.0); %Neutrophils 37.7 % (42.0-75.0); Hemoglobin 14.7 g/dL (14.0-18.0); Mean Corpuscular HGB CONC 33.9 g/dL (32.0-36.0); Mean Corpuscular Hemoglobin 31.6 pg (27.0-31.0); Mean Corpuscular Volume 93.2 fl (80.0-94.0); Mean Platelet Volume 9.6 fL (7.4-10.4); Platelet Count 185 thou/uL (130-400); RBC Distribution Width 13.6 % (11.5-14.5); Red Blood Cell (RBC) Count 4.66 mill/uL (4.70-6.10); White Blood Cell (WBC) Count 5.7 thou/uL (4.8-10.8)
[2017-07-13 22:22] LABS: Magnesium 2.5 mg/dL (1.6-2.6)
[2017-07-13 22:27] LABS: Troponin I Less than 0.010 ng/mL (< 0.028)
[2017-07-13 22:47] LABS: CKMB 8.8 ng/mL (0-6.6)
== END 2017-07-13 22:40 | disposition home or self-care (01) ==
LOC: ERS 18:33
DX: R07.9 Chest pain, unspecified (principal); I10 Essential (primary) hypertension; E78.00 Pure hypercholesterolemia, unspecified; J44.9 Chronic obstructive pulmonary disease, unspecified; F41.9 Anxiety disorder, unspecified; F31.9 Bipolar disorder, unspecified; F20.9 Schizophrenia, unspecified; F17.210 Nicotine dependence, cigarettes, uncomplicated
CPT/HCPCS: 82550; 82553; 83735; 83880; 84484; 85025; 93005; 96360

== ENCOUNTER 2017-07-15 02:55 | Emergency (ER) | payer SELFPAY | END 2017-07-15 04:30 | disposition home or self-care (01) | LOC: ERS 02:55 | DX: Z71.1 Person with feared health complaint in whom no diagnosis is made (principal); F31.9 Bipolar disorder, unspecified; F41.9 Anxiety disorder, unspecified; F20.9 Schizophrenia, unspecified; F17.210 Nicotine dependence, cigarettes, uncomplicated; K21.9 Gastro-esophageal reflux disease without esophagitis; J44.9 Chronic obstructive pulmonary disease, unspecified; I10 Essential (primary) hypertension | CPT/HCPCS: 99282 ==

== ENCOUNTER 2017-09-01 06:11 | Emergency (ER) | payer SELFPAY ==
[2017-09-01] MEDS ORDERED: hydrALAZINE 20 MG/ML VIAL ONE ×2 (06:59→08:20)
[2017-09-01 07:32] LABS: #Basophils 0.1 thou/uL (0.0-0.2); #Eosinphils 0.2 thou/uL (0.0-0.7); #Lymphocytes 2.9 thou/uL (1.20-3.40); #Monocytes 0.6 thou/uL (0.11-0.59); #Neutrophils 7.4 thou/uL (1.40-6.50); %Basophils 0.5 % (0.0-1.0); %Eosinophils 1.9 % (0.0-10.0); %Monocytes 5.6 % (0.0-10.0); Hemoglobin 14.4 g/dL (14.0-18.0); Mean Corpuscular HGB CONC 33.9 g/dL (32.0-36.0); Mean Corpuscular Hemoglobin 30.3 pg (27.0-31.0); Mean Corpuscular Volume 89.3 fl (80.0-94.0); Mean Platelet Volume 9.6 fL (7.4-10.4); Platelet Count 218 thou/uL (130-400); Red Blood Cell (RBC) Count 4.76 mill/uL (4.70-6.10); White Blood Cell (WBC) Count 11.1 thou/uL (4.8-10.8)
[2017-09-01] MEDS ORDERED: Ondansetron ODT 4 MG TAB ONE (07:57)
[2017-09-01 08:02] LABS: ALT (SGPT) 27 U/L (8-55); AST (SGOT) 38 U/L (5-34); Albumin 4.8 g/dL (3.4-4.8); Alkaline Phosphatase 94 U/L (40-150); Anion Gap 19 mmol/L (10-20); BUN (Urea Nitrogen) 17 mg/dL (8.4-25.7); Bilirubin, Total 0.6 mg/dL (0.2-1.2); Calc. Creatinine Clearance 0 mL/min (70-130); Carbon Dioxide 23 mmol/L (23-31); Chloride 100 mmol/L (98-107); Estimated GFR-MDRD 82; Globulin 4.5 g/dL (2.4-3.5); Glucose 82 mg/dL (80-115); Protein, Total 9.3 g/dL (5.8-8.1); Sodium 137 mmol/L (136-145)
[2017-09-01 08:05] LABS: CKMB 5.4 ng/mL (0-6.6); Troponin I Less than 0.010 ng/mL (< 0.028)
[2017-09-01] MEDS ORDERED: Acetaminophen 500 MG TAB ONE (08:20)
--- NOTE | 2017-09-01 08:23 | CT ---
BRAIN CT WITHOUT IV CONTRAST: HISTORY: A 62-year-old male with a history of headache and hypertension. COMPARISON: 06/03/17. FINDINGS: No focal mass or midline shift. No intra- or extraaxial hemorrhage. Sinuses and mastoids are clear of acute process. IMPRESSION: No acute intracranial process. No mass or bleed. Stable from 06/03/17. POS: [facility]
[2017-09-01] MEDS ORDERED: cloNIDine 0.1 MG TAB ONE (09:30)
== END 2017-09-01 10:56 | disposition home or self-care (01) ==
LOC: ERS 06:11
DX: I10 Essential (primary) hypertension (principal); K21.9 Gastro-esophageal reflux disease without esophagitis; E78.00 Pure hypercholesterolemia, unspecified; J44.9 Chronic obstructive pulmonary disease, unspecified; B19.20 Unspecified viral hepatitis C without hepatic coma; F31.9 Bipolar disorder, unspecified; F41.9 Anxiety disorder, unspecified; F17.210 Nicotine dependence, cigarettes, uncomplicated; Z79.899 Other long term (current) drug therapy
CPT/HCPCS: 36416; 70450; 80053; 82553; 84484; 85025; 93005; 96374; 96376; J0360; Q0162

== ENCOUNTER 2017-09-01 19:25 | Emergency (ER) | payer SELFPAY ==
[2017-09-01] MEDS ORDERED: cloNIDine 0.1 MG TAB ONE (20:09)
[2017-09-01 20:22] LABS: #Basophils 0.1 thou/uL (0.0-0.2); #Eosinphils 0.1 thou/uL (0.0-0.7); #Lymphocytes 2.9 thou/uL (1.20-3.40); #Monocytes 0.7 thou/uL (0.11-0.59); #Neutrophils 2.9 thou/uL (1.40-6.50); %Basophils 0.8 % (0.0-1.0); %Eosinophils 2.1 % (0.0-10.0); %Lymphocytes 43.6 % (21.0-51.0); %Neutrophils 43.5 % (42.0-75.0); Hemoglobin 13.6 g/dL (14.0-18.0); Mean Corpuscular HGB CONC 34.8 g/dL (32.0-36.0); Mean Corpuscular Hemoglobin 31.1 pg (27.0-31.0); Mean Corpuscular Volume 89.4 fl (80.0-94.0); Mean Platelet Volume 8.5 fL (7.4-10.4); Platelet Count 207 thou/uL (130-400); RBC Distribution Width 12.8 % (11.5-14.5); Red Blood Cell (RBC) Count 4.37 mill/uL (4.70-6.10); White Blood Cell (WBC) Count 6.6 thou/uL (4.8-10.8)
[2017-09-01 20:48] LABS: Troponin I Less than 0.010 ng/mL (< 0.028)
[2017-09-01 20:54] LABS: ALT (SGPT) 20 U/L (8-55); AST (SGOT) 24 U/L (5-34); Albumin 4.3 g/dL (3.4-4.8); Alkaline Phosphatase 84 U/L (40-150); Anion Gap 15 mmol/L (10-20); BUN (Urea Nitrogen) 22 mg/dL (8.4-25.7); Bilirubin, Total 0.7 mg/dL (0.2-1.2); Calc. Creatinine Clearance 0 mL/min (70-130); Calcium 9.7 mg/dL (7.8-10.44); Carbon Dioxide 23 mmol/L (23-31); Chloride 102 mmol/L (98-107); Estimated GFR-MDRD 83; Globulin 3.8 g/dL (2.4-3.5); Glucose 82 mg/dL (80-115); Potassium 3.5 mmol/L (3.5-5.1); Protein, Total 8.1 g/dL (5.8-8.1); Sodium 136 mmol/L (136-145)
== END 2017-09-01 21:46 | disposition home or self-care (01) ==
LOC: ERS 19:25
DX: R07.89 Other chest pain (principal); I10 Essential (primary) hypertension; K21.9 Gastro-esophageal reflux disease without esophagitis; E78.00 Pure hypercholesterolemia, unspecified; J44.9 Chronic obstructive pulmonary disease, unspecified; F41.9 Anxiety disorder, unspecified; F31.9 Bipolar disorder, unspecified; F29 Unspecified psychosis not due to a substance or known physiological condition; F17.210 Nicotine dependence, cigarettes, uncomplicated; Z79.899 Other long term (current) drug therapy
CPT/HCPCS: 36415; 93005

== ENCOUNTER 2017-09-08 08:11 | Emergency (ER) | payer SELFPAY ==
[2017-09-08 08:50] LABS: #Basophils 0.1 thou/uL (0.0-0.2); #Eosinphils 0.2 thou/uL (0.0-0.7); #Lymphocytes 2.3 thou/uL (1.20-3.40); #Monocytes 0.4 thou/uL (0.11-0.59); %Basophils 2.2 % (0.0-1.0); %Eosinophils 3.6 % (0.0-10.0); %Lymphocytes 46.8 % (21.0-51.0); %Monocytes 7.8 % (0.0-10.0); %Neutrophils 39.6 % (42.0-75.0); Hemoglobin 13.4 g/dL (14.0-18.0); Mean Corpuscular HGB CONC 32.2 g/dL (32.0-36.0); Mean Corpuscular Hemoglobin 29.8 pg (27.0-31.0); Mean Corpuscular Volume 92.7 fl (80.0-94.0); Mean Platelet Volume 8.9 fL (7.4-10.4); Platelet Count 217 thou/uL (130-400); RBC Distribution Width 12.8 % (11.5-14.5); Red Blood Cell (RBC) Count 4.49 mill/uL (4.70-6.10); White Blood Cell (WBC) Count 4.9 thou/uL (4.8-10.8)
[2017-09-08] MEDS ORDERED: Furosemide 40 MG TAB ONE (08:51)
[2017-09-08] MEDS ORDERED: Hydrochlorothiazide 25 MG TAB PO SCH (09:00)
[2017-09-08 09:13] LABS: ALT (SGPT) 17 U/L (8-55); AST (SGOT) 18 U/L (5-34); Albumin 4.4 g/dL (3.4-4.8); Alkaline Phosphatase 86 U/L (40-150); Anion Gap 11 mmol/L (10-20); BUN (Urea Nitrogen) 12 mg/dL (8.4-25.7); Bilirubin, Total 0.4 mg/dL (0.2-1.2); Calc. Creatinine Clearance 0 mL/min (70-130); Calcium 9.4 mg/dL (7.8-10.44); Carbon Dioxide 29 mmol/L (23-31); Chloride 100 mmol/L (98-107); Estimated GFR-MDRD 83; Globulin 4.1 g/dL (2.4-3.5); Glucose 115 mg/dL (80-115); Potassium 4.1 mmol/L (3.5-5.1); Protein, Total 8.5 g/dL (5.8-8.1); Sodium 136 mmol/L (136-145)
[2017-09-08 09:16] LABS: CKMB 1.8 ng/mL (0-6.6); Troponin I Less than 0.010 ng/mL (< 0.028)
--- NOTE | 2017-09-08 09:28 | RAD ---
RADIOGRAPH CHEST 1 VIEW: HISTORY: 62-year-old male with cough and chest pain. FINDINGS: There are no air space densities, pulmonary edema, pneumothorax, or cardiomegaly. The lateral costop hrenic angles are sharp. IMPRESSION: 1. No acute cardiopulmonary findings. 2. Multiple old right rib fracture deformities. vidal [] POS: [facility]
== END 2017-09-08 10:50 | disposition home or self-care (01) ==
LOC: ERS 08:11
DX: R07.2 Precordial pain (principal); I10 Essential (primary) hypertension; F31.9 Bipolar disorder, unspecified; J44.9 Chronic obstructive pulmonary disease, unspecified; E78.00 Pure hypercholesterolemia, unspecified; F41.9 Anxiety disorder, unspecified; F20.9 Schizophrenia, unspecified; F17.210 Nicotine dependence, cigarettes, uncomplicated; K21.9 Gastro-esophageal reflux disease without esophagitis
CPT/HCPCS: 36415; 71045; 80053; 82553; 84484; 85025; 93005

== ENCOUNTER 2017-10-13 11:28 | Emergency (ER) | payer SELFPAY ==
[2017-10-13 12:26] LABS: CKMB 1.7 ng/mL (0-6.6); Troponin I Less than 0.010 ng/mL (< 0.028)
--- NOTE | 2017-10-13 12:29 | RAD ---
PORTABLE CHEST ONE VIEW: 10/13/2017 12:01 p.m. HISTORY: Chest pain. COMPARISON: 09/08/2017 FINDINGS: The heart size is normal. The aorta is tortuous. The lungs are well expanded without focal areas of consolidation, pneumothorax, or pleural effusions. There are degenerative changes in the acromiocla vicular joints. IMPRESSION: No radiographic evidence of acute cardiopulmonary process. POS: [facility]
== END 2017-10-13 12:56 | disposition home or self-care (01) ==
LOC: ERS 11:28
DX: R07.9 Chest pain, unspecified (principal); K21.9 Gastro-esophageal reflux disease without esophagitis; J44.9 Chronic obstructive pulmonary disease, unspecified; B20 Human immunodeficiency virus [HIV] disease; I10 Essential (primary) hypertension; F41.9 Anxiety disorder, unspecified; F31.9 Bipolar disorder, unspecified; F20.9 Schizophrenia, unspecified; F17.210 Nicotine dependence, cigarettes, uncomplicated
CPT/HCPCS: 71045; 82553; 84484; 93005

== ENCOUNTER 2017-10-18 06:49 | Emergency (ER) | payer SELFPAY ==
--- NOTE | 2017-10-18 08:30 | RAD ---
SINGLE VIEW CHEST: Date: 10/18/17 COMPARISON: 10/13/17. HISTORY: Chest pain. FINDINGS: Single view of the chest shows a normal sized cardiomediastinal silhouette. There is no evidence of c onsolidation, mass, or pleural effusion. There are remote healed right rib fractures. IMPRESSION: No evidence of acute cardiopulmonary disease. POS: [facility]
[2017-10-18 08:46] LABS: #Basophils 0.1 thou/uL (0.0-0.2); #Eosinphils 0.1 thou/uL (0.0-0.7); #Monocytes 0.4 thou/uL (0.11-0.59); #Neutrophils 1.8 thou/uL (1.40-6.50); %Basophils 1.3 % (0.0-1.0); %Eosinophils 1.8 % (0.0-10.0); %Lymphocytes 46.8 % (21.0-51.0); %Monocytes 8.2 % (0.0-10.0); %Neutrophils 41.9 % (42.0-75.0); Hemoglobin 13.1 g/dL (14.0-18.0); Mean Corpuscular HGB CONC 34.5 g/dL (32.0-36.0); Mean Corpuscular Hemoglobin 30.9 pg (27.0-31.0); Mean Corpuscular Volume 89.4 fl (80.0-94.0); Mean Platelet Volume 8.1 fL (7.4-10.4); Platelet Count 226 thou/uL (130-400); Red Blood Cell (RBC) Count 4.25 mill/uL (4.70-6.10); White Blood Cell (WBC) Count 4.3 thou/uL (4.8-10.8)
[2017-10-18 09:15] LABS: ALT (SGPT) 10 U/L (8-55); AST (SGOT) 18 U/L (5-34); Albumin 4.1 g/dL (3.4-4.8); Alkaline Phosphatase 82 U/L (40-150); Anion Gap 15 mmol/L (10-20); BUN (Urea Nitrogen) 13 mg/dL (8.4-25.7); Bilirubin, Total 0.3 mg/dL (0.2-1.2); CK (CPK) 82 U/L (30-200); CKMB 1.5 ng/mL (0-6.6); Calc. Creatinine Clearance 0 mL/min (70-130); Calcium 9.5 mg/dL (7.8-10.44); Carbon Dioxide 26 mmol/L (23-31); Chloride 101 mmol/L (98-107); Estimated GFR-MDRD Greater than 90; Globulin 4.2 g/dL (2.4-3.5); Glucose 90 mg/dL (80-115); Lipase 5 U/L (8-78); Potassium 4.1 mmol/L (3.5-5.1); Protein, Total 8.3 g/dL (5.8-8.1); Sodium 138 mmol/L (136-145); Troponin I Less than 0.010 ng/mL (< 0.028)
== END 2017-10-18 10:13 | disposition home or self-care (01) ==
LOC: ERS 06:49
DX: R07.9 Chest pain, unspecified (principal); Z71.6 Tobacco abuse counseling; I10 Essential (primary) hypertension; K21.9 Gastro-esophageal reflux disease without esophagitis; E78.00 Pure hypercholesterolemia, unspecified; J44.9 Chronic obstructive pulmonary disease, unspecified; B20 Human immunodeficiency virus [HIV] disease; F41.9 Anxiety disorder, unspecified; F31.9 Bipolar disorder, unspecified; F20.9 Schizophrenia, unspecified; F17.210 Nicotine dependence, cigarettes, uncomplicated
CPT/HCPCS: 36415; 71045; 80053; 82553; 83690; 83880; 84484; 85025; 93005; 99406

== ENCOUNTER 2017-11-27 17:06 | Emergency (ER) | payer SELFPAY ==
[2017-11-27 17:44] LABS: #Basophils 0.1 thou/uL (0.0-0.2); #Eosinphils 0.2 thou/uL (0.0-0.7); #Lymphocytes 2.4 thou/uL (1.20-3.40); #Monocytes 0.4 thou/uL (0.11-0.59); #Neutrophils 2.4 thou/uL (1.40-6.50); %Basophils 2.2 % (0.0-1.0); %Eosinophils 3.1 % (0.0-10.0); %Lymphocytes 44.5 % (21.0-51.0); %Monocytes 6.8 % (0.0-10.0); %Neutrophils 43.4 % (42.0-75.0); Mean Corpuscular HGB CONC 34.6 g/dL (32.0-36.0); Mean Corpuscular Hemoglobin 31.2 pg (27.0-31.0); Mean Corpuscular Volume 90.2 fL (78.0-98.0); Mean Platelet Volume 8.2 fL (7.4-10.4); Platelet Count 195 thou/uL (130-400); RBC Distribution Width 12.9 % (11.5-14.5); Red Blood Cell (RBC) Count 4.17 mill/uL (4.70-6.10); White Blood Cell (WBC) Count 5.5 thou/uL (4.8-10.8)
[2017-11-27 18:03] LABS: ALT (SGPT) 12 U/L (8-55); AST (SGOT) 15 U/L (5-34); Albumin 4.3 g/dL (3.4-4.8); Alkaline Phosphatase 77 U/L (40-150); Anion Gap 13 mmol/L (10-20); BUN (Urea Nitrogen) 12 mg/dL (8.4-25.7); Bilirubin, Total 0.4 mg/dL (0.2-1.2); CK (CPK) 152 U/L (30-200); Calc. Creatinine Clearance 0 mL/min (70-130); Calcium 9.3 mg/dL (7.8-10.44); Carbon Dioxide 24 mmol/L (23-31); Chloride 106 mmol/L (98-107); Estimated GFR-MDRD Greater than 90; Globulin 3.7 g/dL (2.4-3.5); Glucose 113 mg/dL (80-115); Potassium 3.5 mmol/L (3.5-5.1); Sodium 139 mmol/L (136-145)
[2017-11-27 18:08] LABS: CKMB 2.3 ng/mL (0-6.6); Troponin I Less than 0.010 ng/mL (< 0.028)
--- NOTE | 2017-11-27 18:11 | RAD ---
PORTABLE AP CHEST X-RAY: 11/27/17 HISTORY: Chest pain. COMPARISON: 10/18/17. FINDINGS: The cardiac silhouette and pulmonary vasculature are within normal limits. The lungs are clear. Multi ple remote right sided rib fractures are again seen. There has been no interval change from the prior exam. IMPRESSION: No acute cardiopulmonary process. POS: [facility]
[2017-11-27] MEDS ORDERED: Nitroglycerin 2% Ointment 1 INCH/1 GM Packet ONE (18:39)
[2017-11-27] MEDS ORDERED: Metoclopramide HCl 10 MG/2 ML VIAL ONE (18:39)
[2017-11-27 20:51] LABS: CKMB 2.5 ng/mL (0-6.6); Troponin I Less than 0.010 ng/mL (< 0.028)
[2017-11-27] MEDS ORDERED: Acetaminophen 500 MG TAB ONE (20:55)
== END 2017-11-27 22:32 | disposition home or self-care (01) ==
LOC: ERS 17:06
DX: R07.9 Chest pain, unspecified (principal); G43.909 Migraine, unspecified, not intractable, without status migrainosus; J44.9 Chronic obstructive pulmonary disease, unspecified; I10 Essential (primary) hypertension; B19.20 Unspecified viral hepatitis C without hepatic coma; K21.9 Gastro-esophageal reflux disease without esophagitis; F31.9 Bipolar disorder, unspecified; F17.210 Nicotine dependence, cigarettes, uncomplicated; Z79.899 Other long term (current) drug therapy
CPT/HCPCS: 36415; 71045; 80053; 82553; 84484; 85025; 93005; 96361; 96374; J2765

== ENCOUNTER 2018-01-02 03:32 | Emergency (ER) | payer SELFPAY ==
[2018-01-02] MEDS ORDERED: Ondansetron ODT 8 MG TAB ONE (04:06)
[2018-01-02] MEDS ORDERED: Mag-Al 1200 mg/1200 mg/30 ML UDCUP ONE (04:07)
[2018-01-02] MEDS ORDERED: Lidocaine Viscous Sol 2% 15 ml UD Cup ONE (04:07)
--- NOTE | 2018-01-02 09:48 | RAD ---
2 VIEWS ABDOMEN: Date: 01/02/18 INDICATION: Nausea with abdominal pain. IMPRESSION: Bowel gas pattern is nonspecific, but without evidence of obstruction. Gas is present within the colo n and rectum. Lung bases are clear. There are healed fractures involving the posterior 5th-7th ribs. No acute osseous abnormality is evident. POS: [facility]
== END 2018-01-02 05:56 | disposition home or self-care (01) ==
LOC: ERS 03:32
DX: K29.70 Gastritis, unspecified, without bleeding (principal); I10 Essential (primary) hypertension; E78.00 Pure hypercholesterolemia, unspecified; J44.9 Chronic obstructive pulmonary disease, unspecified; F17.210 Nicotine dependence, cigarettes, uncomplicated; F31.9 Bipolar disorder, unspecified; F20.9 Schizophrenia, unspecified; Z79.899 Other long term (current) drug therapy
CPT/HCPCS: 74019; 96372

== ENCOUNTER 2018-01-24 09:37 | Observation (INO) | payer OTHER, SELFPAY ==
[2018-01-24 10:19] LABS: #Basophils 0.1 thou/uL (0.0-0.2); #Eosinphils 0.1 thou/uL (0.0-0.7); #Lymphocytes 2.1 thou/uL (1.20-3.40); #Monocytes 0.4 thou/uL (0.11-0.59); #Neutrophils 2.4 thou/uL (1.40-6.50); %Basophils 1.3 % (0.0-1.0); %Eosinophils 1.5 % (0.0-10.0); %Lymphocytes 41.4 % (21.0-51.0); %Monocytes 7.6 % (0.0-10.0); %Neutrophils 48.3 % (42.0-75.0); Hemoglobin 11.8 g/dL (14.0-18.0); Mean Corpuscular Hemoglobin 30.1 pg (27.0-31.0); Mean Corpuscular Volume 91.3 fL (78.0-98.0); Mean Platelet Volume 8.8 fL (7.4-10.4); Platelet Count 212 thou/uL (130-400); RBC Distribution Width 11.8 % (11.5-14.5); Red Blood Cell (RBC) Count 3.91 mill/uL (4.70-6.10)
[2018-01-24 10:35] LABS: ALT (SGPT) 14 U/L (8-55); AST (SGOT) 15 U/L (5-34); Alkaline Phosphatase 86 U/L (40-150); Anion Gap 11 mmol/L (10-20); BUN (Urea Nitrogen) 11 mg/dL (8.4-25.7); Bilirubin, Total 0.6 mg/dL (0.2-1.2); CK (CPK) 216 U/L (30-200); Calc. Creatinine Clearance 0 mL/min (70-130); Calcium 8.9 mg/dL (7.8-10.44); Carbon Dioxide 27 mmol/L (23-31); Chloride 104 mmol/L (98-107); Estimated GFR-MDRD 84; Globulin 3.4 g/dL (2.4-3.5); Glucose 80 mg/dL (80-115); Potassium 3.5 mmol/L (3.5-5.1); Protein, Total 7.4 g/dL (5.8-8.1); Sodium 138 mmol/L (136-145)
[2018-01-24 10:40] LABS: CKMB 2.5 ng/mL (0-6.6); Troponin I Less than 0.010 ng/mL (< 0.028)
[2018-01-24] MEDS ORDERED: Nitroglycerin 0.4 MG TAB (25 Tab Bottle) ONE (10:46)
[2018-01-24] MEDS ORDERED: Aspirin 325 MG TAB ONE (10:46)
--- NOTE | 2018-01-24 11:01 | RAD ---
UPRIGHT PORTABLE CHEST 1 VIEW: HISTORY: A 62-year-old male with a history of chest pain, headache, and dizziness. COMPARISON: 11/27/17. FINDINGS: Healed right rib fractures. No pneumothorax, pleural effusion, or other acute process. Heart size i s normal. IMPRESSION: No acute intrathoracic disease. Healed right rib fractures. POS: [facility]
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
[2018-01-24 14:11] LABS: Troponin I Less than 0.010 ng/mL (< 0.028)
[2018-01-24] MEDS ORDERED: Milk Of Magnesia 30 ML UDCUP PO PRN (14:39)
[2018-01-24] MEDS ORDERED: Diabetic Tussin 200 MG/10 ML UDCUP PO PRN (14:39)
[2018-01-24] MEDS ORDERED: Zolpidem Tartrate 5 MG TAB PO PRN (14:39)
[2018-01-24] MEDS ORDERED: Sodium Chloride 0.65% Nasal 44 ML BOT EA NARE PRN (14:39)
[2018-01-24] MEDS ORDERED: Loperamide HCl 2 MG CAP PO PRN (14:39)
[2018-01-24] MEDS ORDERED: Ondansetron ODT 4 MG TAB PO PRN (14:39)
[2018-01-24] MEDS ORDERED: Mag-Al 1200 mg/1200 mg/30 ML UDCUP PO PRN (14:39)
[2018-01-24] MEDS ORDERED: HYDROcodone/Acetaminophen 5/325 mg Tablet PO PRN (14:39)
[2018-01-24] MEDS ORDERED: Eucerin (Mineral Oil/Petrolatum,White) 30 gm Jar TOP PRN (14:39)
[2018-01-24] MEDS ORDERED: Chloraseptic Spray 180 ml Bottle PO PRN (14:39)
[2018-01-24] MEDS ORDERED: Nitroglycerin 0.4 MG TAB (25 Tab Bottle) SL PRN (14:39)
[2018-01-24] MEDS ORDERED: Senokot 8.6 MG TAB PO PRN (14:39)
[2018-01-24] MEDS ORDERED: cloNIDine 0.1 MG TAB PO PRN (14:39)
[2018-01-24] MEDS ORDERED: Acetaminophen 325 MG TAB PO PRN (14:39)
[2018-01-24] MEDS ORDERED: Artificial Tears 18 DROP/0.9 ML EA EYE PRN (14:39)
[2018-01-24] MEDS ORDERED: Loratadine 10 MG TAB PO PRN (14:39)
[2018-01-24] MEDS ORDERED: hydrALAZINE 20 MG/ML VIAL SLOW IVP PRN (14:39)
[2018-01-24] MEDS ORDERED: Ondansetron HCl/PF 4 MG/2 ML Vial IVP PRN (14:39)
[2018-01-24 14:49] VITALS: BMI 22.6
[2018-01-24 16:46] LABS: Troponin I Less than 0.010 ng/mL (< 0.028)
[2018-01-24 19:17] LABS: Amphetamine Not Detected (NotDetected); Barbiturates Screen Not Detected (NotDetected); Benzodiazepine Screen Not Detected (NotDetected); Cocaine Metabolite Screen Not Detected (NotDetected); Medtox Control Line Valid? VALID (VALID); Medtox Reader # READER 4; Methadone Not Detected (NotDetected); Methamphetamine Not Detected (NotDetected); Opiate Screen Not Detected (NotDetected); Oxycodone Screen Not Detected (NotDetected); Phencyclidine (PCP) Not Detected (NotDetected); THC/Cannabinoid Screen Not Detected (NotDetected); Tricyclic Screen Not Detected (NotDetected)
[2018-01-24] MEDS: cloNIDine 0.1 MG TAB PO SCH (21:05)
[2018-01-24] MEDS: Nitroglycerin 2% Ointment 1 INCH/1 GM Packet TOP SCH (21:38)
[2018-01-25 05:09] LABS: Cardiac Risk 5.9 (Less than 4.5)
[2018-01-25] MEDS: Nitroglycerin 2% Ointment 1 INCH/1 GM Packet TOP SCH (07:51)
[2018-01-25] MEDS: cloNIDine 0.1 MG TAB PO SCH (08:37)
[2018-01-25 08:39] VITALS: BP 169/90
[2018-01-25 08:43] VITALS: TEMP 98.6
[2018-01-25] MEDS ORDERED: Amlodipine 5 MG TAB PO SCH (09:00)
[2018-01-25] MEDS ORDERED: Aspirin 325 MG TAB PO SCH (09:00)
--- NOTE | 2018-01-25 09:19 | PDOC.PN ---
- Subjective Encounter Start Date: 01/25/18 Encounter Start Time: 07:30 Patient seen and examined. No new complaints. No overnight events - Objective Resuscitation Status: Resuscitation Status FULL:Full Resuscitation MAR Reviewed: Yes Vital Signs & Weight: Vital Signs (12 hours) Temp Pulse Resp BP BP Pulse Ox 01/25/18 08:37 169/90 H 01/25/18 08:00 98.6 F 58 L 18 169/90 H 96 01/25/18 03:56 98.2 F 63 18 136/79 94 L 01/25/18 02:48 95 01/25/18 00:16 95 01/24/18 23:23 97.5 F L 62 12 159/86 H 95 Weight Weight 144 lb 9 oz I&O: 01/24/18 01/25/18 01/26/18 06:59 06:59 06:59 Intake Total 370 Output Total 775 Balance -405 Result Diagrams: 01/24/18 10:03 01/24/18 10:03 EKG Reviewed by me: Yes (nsr) Phys Exam - Physical Examination Constitutional: NAD HEENT: PERRLA, moist MMs, sclera anicteric Neck: no JVD, supple Respiratory: no wheezing, no rales, no rhonchi Cardiovascular: RRR, no significant murmur, no rub Gastrointestinal: soft, non-tender, no distention, positive bowel sounds Musculoskeletal: no edema, pulses present Neurological: non-focal, normal sensation, moves all 4 limbs Psychiatric: normal affect, A&O x 3 Skin: no rash, normal turgor Dx/Plan (1) Chest pain Code(s): R07.9 - CHEST PAIN, UNSPECIFIED Status: Acute Comment: due to HTN (2) COPD (chronic obstructive pulmonary disease) Status: Chronic (3) Dyslipidemia Code(s): E78.5 - HYPERLIPIDEMIA, UNSPECIFIED Status: Chronic (4) GERD (gastroesophageal reflux disease) Code(s): K21.9 - GASTRO-ESOPHAGEAL REFLUX DISEASE WITHOUT ESOPHAGITIS Status: Chronic (5) Hypertension Code(s): I10 - ESSENTIAL (PRIMARY) HYPERTENSION Status: Chronic Qualifiers: - Plan cont current plan of care * ruled out acs * dc stress test * medication reviewed as below * symptomatic treatment * see discharge summery. Review of Systems - Review of Systems ENT: negative: Ear Pain, Ear Discharge, Nose Pain, Nose Discharge, Nose Congestion, Mouth Pain, Mouth Swelling, Throat Pain, Throat Swelling, Other Respiratory: negative: Cough, Dry, Shortness of Breath, Hemoptysis, SOB with Excertion, Pleuritic Pain, Sputum, Wheezing Cardiovascular: negative: chest pain, palpitations, orthopnea, paroxysmal nocturnal dyspnea, edema, light headedness, other Gastrointestinal: negative: Nausea, Vomiting, Abdominal Pain, Diarrhea, Constipation, Melena, Hematochezia, Other Genitourinary: negative: Dysuria, Frequency, Incontinence, Hematuria, Retention , Other Musculoskeletal: negative: Neck Pain, Shoulder Pain, Arm Pain, Back Pain, Hand Pain, Leg Pain, Foot Pain, Other Skin: negative: Rash, Lesions, Michael, Bruising, Other - Medications/Allergies Allergies/Adverse Reactions: Allergies Allergy/AdvReac Type Severity Reaction Status Date / Time No Known Allergies Allergy Verified 05/03/17 18:29 Medications: Current Medications Acetaminophen (Tylenol) 650 mg PO Q4H PRN PRN Reason: Headache/Fever or Pain Hydrocodone Bitart/Acetaminophen (Valentine 5/325) 1 tab PO Q4H PRN PRN Reason: Moderate Pain (4-6) Al Hydroxide/Mg Hydroxide (Maalox) 30 ml PO Q6H PRN PRN Reason: Heartburn or Indigestion Albuterol/Ipratropium (Duoneb) 3 ml NEB Q3GH-VU PRN PRN Reason: SOB &/or Wheezing Amlodipine Besylate (Norvasc) 5 mg PO DAILY [facility] Last Admin: 01/25/18 08:38 Dose: 5 mg Artificial Tears (Tears Naturale) 0 drop EA EYE PRN PRN PRN Reason: Dry Eyes Aspirin (Aspirin) 325 mg PO DAILY [facility] Last Admin: 01/25/18 08:37 Dose: 325 mg Clonidine (Catapres) 0.1 mg PO BID [facility] Last Admin: 01/25/18 08:37 Dose: 0.1 mg Clonidine (Catapres) 0.1 mg PO Q4H PRN PRN Reason: Systolic BP > 180 Guaifenesin (Robitussin Sf) 200 mg PO Q4H PRN PRN Reason: Cough Hydralazine HCl (Apresoline) 10 mg SLOW IVP Q4H PRN PRN Reason: Systolic BP > 180 Loperamide HCl (Imodium) 2 mg PO PRN PRN PRN Reason: Diarrhea/Loose Stools Loratadine (Claritin) 10 mg PO DAILYPRN PRN PRN Reason: Sinus Symptoms Magnesium Hydroxide (Milk Of Magnesium) 30 ml PO DAILYPRN PRN PRN Reason: Constipation Mineral Oil/White Petrolatum (Eucerin Cream) 0 gm TOP BIDPRN PRN PRN Reason: Dry Skin Nitroglycerin (Nitro-Bid 2% Ointment) 0.5 inch TOP Q8HR [facility] Last Admin: 01/25/18 07:51 Dose: Not Given Nitroglycerin (Nitrostat) 0.4 mg SL Q5MIN PRN PRN Reason: Chest Pain Ondansetron HCl (Zofran Odt) 4 mg PO Q6H PRN PRN Reason: Nausea/Vomiting Ondansetron HCl (Zofran) 4 mg IVP Q6H PRN PRN Reason: Nausea/Vomiting Pantoprazole Sodium (Protonix) 40 mg PO DAILY [facility] Last Admin: 01/25/18 08:38 Dose: 40 mg Phenol (Chloraseptic Vincent 180 Ml Bot) 0 ml PO PRN PRN PRN Reason: Sore Throat Senna (Senokot) 2 tab PO HSPRN PRN PRN Reason: Constipation Sodium Chloride (Abiquiu Nasal Vincent 0.65%) 0 ml EA NARE QIDPRN PRN PRN Reason: Nasal Congestion Zolpidem Tartrate (Ambien) 5 mg PO HSPRN PRN PRN Reason: Insomnia
--- NOTE | 2018-01-25 10:24 | DIS ---
PRIMARY CARE PHYSICIAN: [facility] call admission. DATE OF ADMISSION: 01/24/2018 DATE OF DISCHARGE: 01/25/2018 DISCHARGE DISPOSITION: Home. PRIMARY DISCHARGE DIAGNOSIS: Chest pain, ruled out acute coronary syndrome due to hypertension. SECONDARY DISCHARGE DIAGNOSES: Hypertension, normocytic normochromic anemia, dyslipidemia, gastroeso phageal reflux disease, history of chronic obstructive pulmonary disease, history of polysubstance ab use in the past. PRIMARY PROCEDURE/OPERATION: None. RADIOLOGICAL INVESTIGATION: Chest x-ray was normal. SIGNIFICANT LABORATORY DATA: Urine drug screen negative. Sodium 138, potassium 3.5, BUN 11, creatin ine 1.07, calcium 8.9. LFTs normal. Cardiac enzymes negative x3. LDL 150. WBC 5.0, hemoglobin 11. 8, platelet 212. DISCHARGE MEDICATIONS: Amlodipine 10 mg p.o. daily, aspirin 81 mg p.o. daily, Lipitor 10 mg p.o. mitch ly, Coreg 6.25 mg p.o. b.i.d., clonidine 0.1 mg p.o. b.i.d., Protonix 40 mg p.o. daily. CONTRAINDICATIONS: None. CODE STATUS: FULL CODE. INPATIENT CONSULTANTS: None. ALLERGIES: No known drug allergy. DISCHARGE PLAN: Post hospital, the patient will follow up with primary care physician. HOSPITAL COURSE: The patient is a 62-year-old male who was admitted by me. Please see my HPI for fu rther details. The patient was admitted for chest pain. His blood pressure was very high on admissi on that was contributing to his chest pain. He was asymptomatic when he arrived to the ER. His EKG was unchanged from previous. His troponins were negative. We kept him in the hospital for observati on. We did serial cardiac enzyme that remained negative. The patient was asymptomatic while in hosp ital. We started selected blood pressure medication, his blood pressure remained at target. His uri ne drug screen was negative and his telemetry remained unremarkable. As this patient already had str ess test done within a year ago and that is why we decided to cancel stress test which was ordered. The patient is seen and examined at bedside today. Please see my progress note from today for furthe r details. The patient is medically stable for discharge today.
== END 2018-01-25 10:38 | disposition home or self-care (01) ==
LOC: ERS 09:37 → 2SW 12:20
PROVIDERS: ADMIT Internal Medicine; ATTEND Internal Medicine
DX: R07.89 Other chest pain (principal); I16.0 Hypertensive urgency; I10 Essential (primary) hypertension; J44.9 Chronic obstructive pulmonary disease, unspecified; E78.5 Hyperlipidemia, unspecified; F31.9 Bipolar disorder, unspecified; F41.9 Anxiety disorder, unspecified; F20.9 Schizophrenia, unspecified; F17.210 Nicotine dependence, cigarettes, uncomplicated; F14.11 Cocaine abuse, in remission; F12.11 Cannabis abuse, in remission; K21.9 Gastro-esophageal reflux disease without esophagitis; D64.9 Anemia, unspecified; Z79.899 Other long term (current) drug therapy; Z91.14 Patient's other noncompliance with medication regimen
CPT/HCPCS: 36415; 71045; 80053; 80061; 80306; 82550; 82553; 84484; 85025; 93005; 96360; G0378